=== PATIENT | male | born 1935 ===

== ENCOUNTER 2017-10-06 10:37 | Inpatient (IN) | payer MEDICARE, OTHER ==
[2017-10-06] MEDS ORDERED: Albuterol-Ipratrop 3 mg / 0.5 (3 ml) UD INH STA ×2 (11:46→12:58)
[2017-10-06 12:00] LABS: BASO # 0.1 K/uL (0.0-0.2); BASO % 1.1 % (0.0-2.0); EOS % 0.4 % (0.0-4.0); HEMOGLOBIN 18.4 g/dL (12.0-18.0); MEAN CELL VOLUME 100.1 fL (80.0-94.0); MEAN CORPUSCULAR HGB CONC 34.9 g/dL (33.0-37.0); MEAN PLATELET VOLUME 9.2 fL (7.2-11.7); MONO # 0.5 K/uL (0.0-0.8); MONO % 6.8 % (0.0-10.0); NEUT # 4.2 K/uL (1.8-7.0); NEUT % 61.7 % (50.0-75.0); NRBC % 0.2 % (0.0-2.0); RBC 5.25 Mil/uL (4.40-5.90); RED CELL DISTRIBUTION WIDTH 13.9 % (11.5-14.5); WHITE BLOOD COUNT 6.8 K/uL (4.8-10.8)
--- NOTE | 2017-10-06 12:14 | C.PDOC ---
History Of Present Illness 82 y/o male with history of Asthma brought to ED by EMS for chest pain for 1 week and lightheadedness developed today. As per homemaker patient became lightheaded today while at home and she called EMS. At ED patient denies abdominal pain, nausea, vomiting or any other complaints at this time. Patient + smoker. Time Seen by Provider: 10/06/17 11:33 Chief Complaint (Nursing): Dizziness/Lightheaded History Per: Patient, Family History/Exam Limitations: no limitations Onset/Duration Of Symptoms: Hrs Current Symptoms Are (Timing): Still Present Past Medical History Reviewed: Historical Data, Nursing Documentation, Vital Signs Vital Signs: Last Vital Signs Temp 97.5 F L 10/06/17 10:49 Pulse 65 10/06/17 10:49 Resp 18 10/06/17 10:49 BP 120/53 L 10/06/17 10:49 Pulse Ox 97 10/06/17 13:08 - Medical History PMH: Anxiety, Bronchitis, COPD, HTN Surgical History: Appendectomy - [facility] Procedures NEBULIZER THERAPY (11/26/14) Family History: States: No Known Family Hx - Social History Hx Alcohol Use: Yes Hx Substance Use: No - Immunization History Hx Tetanus Toxoid Vaccination: No Hx Influenza Vaccination: No Hx Pneumococcal Vaccination: No Review Of Systems Except As Marked, All Systems Reviewed And Found Negative. Cardiovascular: Positive for: Chest Pain, Light Headedness Physical Exam - Physical Exam Appears: Non-toxic, No Acute Distress Skin: Warm, Dry, No Rash Head: Atraumatic, Normacephalic Eye(s): bilateral: Normal Inspection Oral Mucosa: Moist Neck: Normal ROM, Supple Cardiovascular: Rhythm Regular Respiratory: Decreased Breath Sounds, No Rales, No Rhonchi, No Wheezing Gastrointestinal/Abdominal: Soft, No Tenderness, No Guarding, No Rebound Extremity: Normal ROM, No Pedal Edema, Capillary Refill (<2 seconds) Neurological/Psych: Oriented x3, Normal Speech, Normal Cognition ED Course And Treatment - Laboratory Results Result Diagrams: 10/06/17 11:49 10/06/17 11:49 ECG: Interpreted By Me, Viewed By Me ECG Rhythm: Sinus Rhythm Rate From EC (BPM) O2 Sat by Pulse Oximetry: 97 (RA) Pulse Ox Interpretation: Normal Medical Decision Making Medical Decision Making: Assessment: Chest pain Plan: EKG, CXR, neb treatment discussed with Dr. Kurtz and will admit to telemetry. Aspirin, breathing treatments, antibiotics given. Disposition Discussed With Dr.: Caleb Kurtz Doctor Will See Patient In The: Hospital Counseled Patient/Family Regarding: Studies Performed, Diagnosis - Disposition Disposition: HOSPITALIZED Disposition Time: 13:07 Condition: FAIR - Clinical Impression Clinical Impression: COPD (chronic obstructive pulmonary disease) with acute bronchitis, Chest pain - Scribe Statement The provider has reviewed the documentation as recorded by the Anna Russell All medical record entries made by the Anna were at my direction and personally dictated by me. I have reviewed the chart and agree that the record accurately reflects my personal performance of the history, physical exam, medical decision making, and the department course for this patient. I have also personally directed, reviewed, and agree with the discharge instructions and disposition.
[2017-10-06 12:16] LABS: ALBUMIN 4.5 g/dL (3.5-5.0); ALT/SGPT 23 U/L (21-72); AST/SGOT 31 U/L (17-59); BLOOD UREA NITROGEN 8 mg/dL (9-20); CALCIUM 9.8 mg/dl (8.6-10.4); GFR AFRICAN-AMERICAN > 60; GFR NON-AFRICAN AMERICAN > 60
[2017-10-06 12:26] LABS: B-TYPE NATRIURETIC PEPTIDE 351 pg/mL (0-900)
--- NOTE | 2017-10-06 12:33 | RAD ---
Chest x-ray single frontal view History: Chest pain. Comparison: None available. Findings: Biapical pleural thickening with upper lobe granulomatous changes. Hyperinflation suggestive for COPD and or emphysematous changes. Mild venous congestion. Bilateral hilar prominence. Patchy bibasilar airspace opacities. Cardiomegaly. Calcification at the aortic knob. Degenerative changes in the spine and shoulders. Impression: Biapical pleural thickening with upper lobe granulomatous changes. Hyperinflation suggestive for COPD and or emphysematous changes. Mild venous congestion. Bilateral hilar prominence. Patchy bibasilar airspace opacities. Cardiomegaly. Calcification at the aortic knob.
[2017-10-06] MEDS ORDERED: Moxifloxacin IV 400mg/250ml NS 400 MG/250 ML BAG IVPB ONE (13:00)
[2017-10-06] MEDS ORDERED: Azithromycin 500 MG in Sodium Chloride 0.9% 250 ML IVPB STA (13:26)
[2017-10-06] MEDS ORDERED: Albuterol-Ipratrop 3 mg / 0.5 (3 ml) UD ONE (13:36)
[2017-10-06 14:33] LABS: URINE BACTERIA RARE (<OCC); URINE BILIRUBIN NEGATIVE (NEGATIVE); URINE BLOOD 3+ (NEGATIVE); URINE CLARITY Clear (Clear); URINE COLOR Straw (YELLOW); URINE GLUCOSE (UA) NORMAL (Normal); URINE LEUKOCYTE ESTERASE NEG Leu/uL (Negative); URINE PROTEIN NEGATIVE (NEGATIVE); URINE UROBILINOGEN NORMAL mg/dL (0.2-1.0)
[2017-10-06] MEDS ORDERED: Pneumococcal 23-Valent Vaccine IM ONE (16:23)
[2017-10-06] MEDS: Albuterol-Ipratrop 3 mg / 0.5 (3 ml) UD INH SCH (21:00)
[2017-10-06] MEDS: MethylPREDNISolone 40 mg Vial IVP SCH (21:38)
[2017-10-07] MEDS: Albuterol-Ipratrop 3 mg / 0.5 (3 ml) UD INH SCH ×4 (01:10→19:58)
[2017-10-07] MEDS: MethylPREDNISolone 40 mg Vial IVP SCH ×3 (06:02→22:02)
[2017-10-07] MEDS: Bisoprolol-HCTZ 5-6.25 mg Tab PO SCH (10:12)
[2017-10-07] MEDS: Pantoprazole 40 mg EC Tab PO SCH (10:12)
[2017-10-07] MEDS: Enoxaparin 40 mg Syringe SC SCH (10:13)
[2017-10-07] MEDS: Azithromycin 500mg/250ML NS 500 MG/250 ML BAG IVPB SCH (11:50)
--- NOTE | 2017-10-07 17:14 | CARD ---
APPROVED REPORT EXAM: Two-dimensional and M-mode echocardiogram with Doppler and color Doppler. Other Information Quality : GoodRhythm : INDICATION LV Function:Systolic Chest Pain 2D DIMENSIONS IVSd1.0 (0.7-1.1cm)LVDd3.7 (3.9-5.9cm) PWd1.0 (0.7-1.1cm)LVDs2.2 (2.5-4.0cm) FS (%) 40.4 %LVEF (%)72.0 (>50%) M-Mode DIMENSIONS Left Atrium (MM)3.92 (2.5-4.0cm)Aortic Root3.52 (2.2-3.7cm) Aortic Cusp Exc.2.30 (1.5-2.0cm) Mitral Valve MV E Yawnlfgh41.1cm/sMV A Vtydiage308.1cm/sE/A ratio0.8 TDI E/Lateral E'0.0E/Medial E'0.0 Tricuspid Valve TR Peak [id number]/sTR Peak Gr.66mmHg LEFT VENTRICLE The left ventricle is normal size. There is normal left ventricular wall thickness. The left ventricular function is normal. The left ventricular ejection fraction is within the normal range. There is normal LV segmental wall motion. Transmitral Doppler flow pattern is Grade I-abnormal relaxation pattern. RIGHT VENTRICLE The right ventricle is borderline dilated. There is normal right ventricular wall thickness. The right ventricular systolic function is normal. ATRIA The left atrium size is normal. The right atrium is borderline dilated. AORTIC VALVE The aortic valve is mildly sclerotic. No aortic regurgitation is present. There is no aortic valvular stenosis. MITRAL VALVE The mitral valve is mildly thickened. There is no mitral valve stenosis. Mitral regurgitation is mild. TRICUSPID VALVE There is moderate tricuspid regurgitation. There is moderate to severe pulmonary hypertension. GREAT VESSELS The aortic root is normal in size. The IVC is normal in size and collapses >50% with inspiration. <Conclusion> The left ventricle is normal size. There is normal left ventricular wall thickness. The left ventricular function is normal. The left ventricular ejection fraction is within the normal range. There is normal LV segmental wall motion. Transmitral Doppler flow pattern is Grade I-abnormal relaxation pattern. Mitral regurgitation is mild. There is moderate tricuspid regurgitation. There is moderate to severe pulmonary hypertension.
--- NOTE | 2017-10-07 18:34 | CT ---
PROCEDURE: CT HEAD WITHOUT CONTRAST. HISTORY: dizziness COMPARISON: None available. TECHNIQUE: Axial computed tomography images were obtained through the head/brain without intravenous contrast. Radiation dose: Total exam DLP = mGy-cm. This CT exam was performed using one or more of the following dose reduction techniques: Automated exposure control, adjustment of the mA and/or kV according to patient size, and/or use of iterative reconstruction technique. FINDINGS: HEMORRHAGE: No intracranial hemorrhage. BRAIN: No mass effect or edema. Mild age-appropriate atrophy. Mild periventricular white matter lucency with patchy foci of deep and subcortical white matter lucency, consistent with chronic microvascular ischemic change. No evidence of acute infarct. VENTRICLES: Unremarkable. No hydrocephalus. CALVARIUM: Unremarkable. PARANASAL SINUSES: Unremarkable as visualized. No significant inflammatory changes. MASTOID AIR CELLS: Unremarkable as visualized. No inflammatory changes. OTHER FINDINGS: None. IMPRESSION: No intracranial mass, hemorrhage or evidence of acute infarct.
[2017-10-07 20:42] LABS: INR 1.1; PROTHROMBIN TIME 12.6 SECONDS (9.7-12.2)
--- NOTE | 2017-10-07 21:59 | CARD ---
APPROVED REPORT EKG Measurement Heart [id number] <Conclusion> Normal sinus rhythm Normal ECG
--- NOTE | 2017-10-08 00:54 | CON ---
DATE: REASON FOR CONSULTATION: Chest pain and lightheadedness.HISTORY OF PRESENT ILLNESS: The patient is an 82-year-old male who has history of bronchial asthma who was admitted because of history of chest pain and recent lightheadedness that developed the day of admission, i.e., yesterday. The patient denies either chest pain or lightheadedness at the time I am evaluating the patient, and he is unaware of any history of heart attack in the past. SOCIAL HISTORY: The patient is a smoker. MEDICATIONS: Cozaar 50 mg once a day, Lipitor inhaler every 6 hours, Lovenox 40 mg subcutaneous once a day, Norvasc 5 mg once a day, Protonix 40 mg once a day, Singulair 10 mg once a day, Solu-Medrol 40 mg intravenously every 8 hours, Xanax 0.5 mg daily, bisoprolol/hydrochlorizide 5/6.25 mg daily, Zithromax 500 mg intravenously daily. REVIEW OF SYSTEMS: The patient complains of cough. He denies any fever or chills. No nausea or vomiting. No syncope. PHYSICAL EXAMINATION: GENERAL: The patient is elderly male, who does not appear to be in any acute distress. VITAL SIGNS: Blood pressure 141/65, heart rate 77, temperature 97.3, respirations 20. HEENT: Normocephalic. CHEST: Bilateral rhonchi. HEART: S1 and S2 regular. ABDOMEN: Soft. EXTREMITIES: No edema. LABORATORY DATA: SMA-7 today, sodium 139, potassium 4.3, chloride 97, CO2 of 27, glucose 154, BUN 8, and creatinine 0.8. Three sets of troponins are negative. Hemoglobin and hematocrit 8.4 and 32.5. White count and platelet count are within normal limits. EKG revealed normal sinus rhythm. Chest x-ray revealed normal cardiac silhouette, consider bilateral lower lobe infiltrate. ASSESSMENT: 1. Chest pain, myocardial infraction ruled out. 2. Considered underlying chronic obstructive lung disease. 3. Considered underlying bilateral pneumonia. 4. Hypertension. RECOMMENDATIONS: Continue Cozaar 50 mg once a day, Lovenox 40 mg subcutaneously once a day, Norvasc 5 mg once a day, Protonix 40 mg p.o. once a day, Singulair 10 mg once a day, Solu-Medrol 40 mg intravenously every 8 hours, bisoprolol/hydrochlorizide 5/6.25 mg once a day, Zithromax 500 mg intravenously daily. I will review the echocardiographic study that was performed today. Obtain both carotid Doppler as well as CT scan without contrast. Tarun Ruiz MD
[2017-10-08] MEDS: Albuterol-Ipratrop 3 mg / 0.5 (3 ml) UD INH SCH ×4 (01:10→19:44)
[2017-10-08] MEDS: MethylPREDNISolone 40 mg Vial IVP SCH ×3 (05:47→21:28)
--- NOTE | 2017-10-08 09:01 | HP ---
HISTORY OF PRESENT ILLNESS: This is an 82-year-old male with history of COPD, smoker, brought to emergency room by EMS for chest pain that has been progressive over 1 week duration. Symptoms were associated with lightheadedness that developed on the day of admission. The patient has a homemaker that called ambulance due to the above symptoms. The patient was evaluated in emergency room and admitted for further management. The patient denied to have any other symptoms in the review of systems. ALLERGIES: THE PATIENT HAS ALLERGY TO PENICILLIN. MEDICATIONS: As per MAR. SOCIAL HISTORY: Positive for smoker. No EtOH or substance abuse. FAMILY HISTORY: Not contributory. PAST MEDICAL HISTORY: COPD, hypertension. PHYSICAL EXAMINATION: VITAL SIGNS: Blood pressure 144/57, temperature 97.3, respiratory rate 20, and pulse 86. HEENT: Pupils equal and reactive to light. Normal-appearing mucosa of the conjunctivae, oropharynx, and nasal membrane mucosa. NECK: Supple. No JVD. No carotid bruit. No lymph node. No thyromegaly. CHEST AND LUNGS: Bilateral symmetrical expansion. Good air exchange. No rales. Few scattered rhonchi. CARDIOVASCULAR SYSTEM: PMI not localized. S1, S2. No additional sounds. ABDOMEN: Normoactive bowel sounds. No tenderness. No organomegaly. No masses. EXTREMITIES: No cyanosis, no clubbing, no edema. CARPENTER REPAIR: Alert, awake, oriented x2. No neurological deficit could be appreciated. ASSESSMENT: 1. Chest pain, rule out myocardial infarction. 2. Hypertension. 3. Chronic obstructive pulmonary disease exacerbation. PLAN: Continue current medications and start the patient on IV antibiotics, azithromycin as well as Solu-Medrol. DVT prophylaxis. Caleb Kurtz MD
[2017-10-08] MEDS: Bisoprolol-HCTZ 5-6.25 mg Tab PO SCH (10:10)
[2017-10-08] MEDS: Enoxaparin 40 mg Syringe SC SCH (10:10)
[2017-10-08] MEDS: Pantoprazole 40 mg EC Tab PO SCH (10:10)
[2017-10-08] MEDS: Azithromycin 500mg/250ML NS 500 MG/250 ML BAG IVPB SCH (12:00)
--- NOTE | 2017-10-08 14:44 | PN ---
DATE: SUBJECTIVE: History was taken via a tech brazer tester who was the RN. The patient is confused and does not answer any question appropriately. However, he to say that he had some hot feeling over the chest. The patient denies any chest pain at this time. PHYSICAL EXAMINATION: VITAL SIGNS: Blood pressure 116/62, heart rate 85, temperature 98, respirations 20. HEENT: Normocephalic. CHEST: Bilateral rhonchi. HEART: S1 and S2, regular. EXTREMITIES: No edema. LABORATORY DATA: Three sets of troponins are negative. Carotid Doppler revealed moderate disease in the right internal carotid artery. This is a preliminary report, the final report is still pending. Head CT scan without contrast revealed no intracranial mass, hemorrhage or evidence of acute infarct. D-dimer was 315, mildly elevated. Echocardiographic study revealed normal ventricular size, wall thickness, and systolic function. There is moderate tricuspid insufficiency and moderate to severe pulmonary hypertension. complaints. ASSESSMENT: 1. Chest pain, myocardial infarction ruled out. 2. Dizziness on admission. 3. Moderate right internal carotid artery disease, official report is still pending. 4. Moderate to severe pulmonary hypertension. RECOMMENDATIONS: Continue current Cozaar 50 mg once daily, Lovenox 40 mg subcutaneous once a day, amlodipine at 5 mg once a day, Solu-Medrol 40 mg intravenously every 8 hours, IV Zithromax 500 mg daily. We will obtain chest CT angio to rule out pulmonary embolism. Tarun Ruiz MD
[2017-10-08] MEDS ORDERED: Iodixanol 320 mg/ml 150 ml Bottle IV ONE (15:32)
--- NOTE | 2017-10-08 17:56 | CT ---
PROCEDURE: CT Chest with contrast (Pulmonary Angiogram) HISTORY: Rule out PE. COMPARISON: None available. TECHNIQUE: Axial computed tomography images were obtained of the chest in the pulmonary arterial phase of enhancement. Coronal and sagittal reformatted images were created and reviewed. Intravenous contrast dose: 100 cc Visipaque 320 contrast Radiation dose: Total exam DLP = 332.84 mGy-cm. This CT exam was performed using one or more of the following dose reduction techniques: Automated exposure control, adjustment of the mA and/or kV according to patient size, and/or use of iterative reconstruction technique. . FINDINGS: PULMONARY ARTERIES: The visualized portions of the pulmonary trunk, right and left main, lobar, segmental and proximal subsegmental branches of the pulmonary arteries are well opacified with no definitive filling defects seen to suggest acute pulmonary embolus. . Pulmonary trunk measures approximately 2.94 cm. AORTA: Ascending thoracic aorta measures approximately. 3.27 cm and descending thoracic aorta measures approximately 2.6 cm. . Note made of soft and partially calcified atherosclerotic plaque along the ascending and descending thoracic aorta. LUNGS: Severe centrilobular and panlobular emphysematous changes throughout the upper and lower lobes. . There is a small area linear area of atelectasis or scarring in the right posterior sulcus. There is also suspected area of scarring in the right the middle lobe region and to a lesser degree lingular regions. There is a elliptical shaped density with linear stellate scarring extending peripherally from this central focus to the pleural surfaces in the left lung apex. This most likely represents scar however followup interval recommended to assess stability and to exclude the possibility of developing scar carcinoma PLEURAL SPACES: Unremarkable. No effusion or pneumothorax. . . The slips of the left hemidiaphragm well delineated. HEART: Heart size is and mildly enlarged. No significant pericardial effusion. LYMPH NODES: No significant mediastinal or hilar adenopathy. Central airways are midline and patent. No large central endoluminal lesions. There is a small hiatal hernia with slight wall thickening of the distal esophagus likely due to protrusion of gastric mucosa. BONES, CHEST WALL: Unremarkable. No fracture or destructive lesion OTHER FINDINGS: Cholecystectomy. . IMPRESSION: No evidence of acute central pulmonary embolus. Mild scarring changes both lower lobes including lingular and middle lobe regions. Severe centrilobular and panlobular emphysematous changes.
--- NOTE | 2017-10-08 22:37 | PN ---
DATE: 10/08/2017. SUBJECTIVE: The patient is seen today 10/08/2017. He has less shortness of breath and wheezing as well as no cardiopulmonary distress. PHYSICAL EXAMINATION: VITAL SIGNS: Blood pressure 117/62, temperature 98, respiratory rate 20 and pulse 85. HEENT: Pupils equal, reactive to light. Normal-appearing mucosa of the conjunctivae, oropharynx and nasal membrane mucosa. NECK: Supple. No JVD. No carotid bruit. No lymph node. No thyromegaly. CHEST AND LUNGS: Bilateral symmetrical expansion. Decreased rhonchi bilaterally. CARDIOVASCULAR SYSTEM: PMI not localized. S1, S2. No additional sounds. ABDOMEN: Normoactive bowel sounds. No tenderness. No organomegaly. No masses. EXTREMITIES: No cyanosis, no clubbing, no edema. BOAT MOTOR MECHANIC: Alert, awake, oriented x1. Positive deafness of both ears. No lateralization signs or neurological deficits. ASSESSMENT: Exacerbation of chronic obstructive pulmonary disease, chest pain and myocardial function was ruled out, hypertension, anxiety. PLAN: Continue current medications including the antibiotics. Follow with Cardiology recommendations. Caleb Kurtz MD
[2017-10-09] MEDS: Albuterol-Ipratrop 3 mg / 0.5 (3 ml) UD INH SCH ×4 (01:31→19:54)
[2017-10-09] MEDS: MethylPREDNISolone 40 mg Vial IVP SCH ×2 (05:29→14:48)
[2017-10-09 08:13] LABS: HEMOGLOBIN 16.7 g/dL (12.0-18.0); MEAN CELL VOLUME 100.3 fL (80.0-94.0); MEAN CORPUSCULAR HEMOGLOBIN 34.5 pg (27.0-31.0); MEAN CORPUSCULAR HGB CONC 34.4 g/dL (33.0-37.0); MEAN PLATELET VOLUME 8.9 fL (7.2-11.7); RBC 4.82 Mil/uL (4.40-5.90); RED CELL DISTRIBUTION WIDTH 14.1 % (11.5-14.5)
[2017-10-09 08:16] LABS: WHITE BLOOD COUNT 10.4 K/uL (4.8-10.8)
[2017-10-09 08:52] LABS: BLOOD UREA NITROGEN 21 mg/dL (9-20); CALCIUM 9.5 mg/dl (8.6-10.4); GFR AFRICAN-AMERICAN > 60; GFR NON-AFRICAN AMERICAN > 60
[2017-10-09] MEDS: Bisoprolol-HCTZ 5-6.25 mg Tab PO SCH (10:38)
[2017-10-09] MEDS: Pantoprazole 40 mg EC Tab PO SCH (10:38)
[2017-10-09] MEDS: Enoxaparin 40 mg Syringe SC SCH (10:38)
--- NOTE | 2017-10-09 19:06 | PN ---
DATE: 10/09/2017 SUBJECTIVE: The patient denies any chest pain, abdominal pain, or shortness of breath. PHYSICAL EXAMINATION VITAL SIGNS: Blood pressure 133/70, heart rate 77, temperature 97.3, respirations 20. HEENT: Normocephalic. CHEST: Clear. HEART: Sounds are regular. EXTREMITIES: No edema. LABORATORY DATA: Today's SMA-7 is within normal limits except for glucose of 131, BUN and creatinine are 21 and 0.7 respectively. Today's hemoglobin, hematocrit, white count, and platelet count are within normal limit. CT angio of chest: No evidence of acute pulmonary embolus. Mild scarring is present in both lower lobes including lingula and middle lobe region. Severe centrilobular and panlobular emphysematous changes. ASSESSMENT AND PLAN: 1. Chest pain, myocardial infarction is ruled out. 2. History of dizziness on admission. 3. Severe centrilobular and panlobular emphysematous changes noted on the CAT scan with mild scarring of both lower lobes and right middle lobe. RECOMMENDATIONS: Continue current Cozaar at 50 mg once a day, Lovenox at 20 mg once a day, amlodipine at 5 mg once a day, Protonix at 40 mg once a day, Solu-Medrol 40 mg intravenously every 8 hours, Zithromax 500 mg once a day. Tarun Ruiz MD
--- NOTE | 2017-10-10 00:48 | PN ---
DATE: 10/09/2017 SUBJECTIVE: The patient is seen today, 10/09/2017. He is less short of breath, and denied to have chest pain today. OBJECTIVE: VITAL SIGNS: Blood pressure is 111/64, temperature 98.2, respiratory rate 20, and pulse 79. HEENT: Pupils equal and reactive to light. Normal-appearing mucosa of the conjunctivae, oropharynx, and nasal membrane mucosa. NECK: Supple. No JVD. No carotid bruit. No lymph nodes. No thyromegaly. CHEST AND LUNGS: Bilateral symmetrical expansion. Good air exchange. No rales. The patient has few scattered rhonchi. CARDIOVASCULAR SYSTEM: PMI not localized. S1, S2. No additional sounds. ABDOMEN: Normoactive bowel sounds. No tenderness. No organomegaly. No masses. EXTREMITIES: No cyanosis, no clubbing, no edema. DIRECTOR OF FIRST IMPRESSIONS: Alert, awake, and oriented x1. The patient has sensorineural deafness, and there is no other neurological deficit. ASSESSMENT: 1. Exacerbation of chronic obstructive pulmonary disease. 2. Hypertension. 3. Chest pain. 4. Myocardial infarction was ruled out. PLAN: We will taper off steroids and continue bronchodilators. Discussed the patient's condition with Cardiology who at this time will not do any further testing as the patient's echocardiogram is unremarkable. Caleb Kurtz MD
[2017-10-10] MEDS: Albuterol-Ipratrop 3 mg / 0.5 (3 ml) UD INH SCH ×4 (01:13→20:37)
[2017-10-10] MEDS: Enoxaparin 40 mg Syringe SC SCH (09:32)
[2017-10-10] MEDS: Pantoprazole 40 mg EC Tab PO SCH (09:33)
[2017-10-10] MEDS: Bisoprolol-HCTZ 5-6.25 mg Tab PO SCH (09:33)
--- NOTE | 2017-10-10 10:09 | VASCLAB ---
PROCEDURE: HISTORY: dizziness COMPARISON: None available. TECHNIQUE: Grayscale and duplex Doppler evaluation of the cervical carotid and vertebral arteries were performed. The common carotid, carotid bifurcations and cervical Internal Carotid Artery (ICA) and proximal External Carotid Artery (ECA) were evaluated. The vertebral arteries were evaluated for gross patency and flow direction. Report prepared by Tigre Olivas, BS, RVT FINDINGS: RIGHT CAROTID ARTERIES: 1. Common Carotid Artery: Moderate plaque formation of the right proximal CCA which results in hemodynamically significant stenosis. Maximum Peak Systolic velocity: 163 cm/sec: End-diastolic velocity 42 cm/sec. 2. Carotid Bifurcation: Calcific plaque formation. Maximum Peak Systolic velocity: 131 cm/sec: End-diastolic velocity 0 cm/sec. 3. Internal Carotid Artery: Severe plaque formation of the right proximal ICA which does not results in a hemodynamically significant stenosis. Plaque description: 3.1. Proximal Segment: Peak systolic velocity 161 cm/sec: End-diastolic velocity 39 cm/sec - % stenosis 50-60% 3.2. Middle Segment: Peak systolic velocity 48 cm/sec: End-diastolic velocity 15 cm/sec - % stenosis 0-15% 3.3. Distal Segment: Peak systolic velocity 61 cm/sec: End-diastolic velocity 19 cm/sec - % stenosis 0-15% 4. External Carotid Artery: No significant focal plaque formation. Peak systolic velocity 224 cm/sec 5. ICA/CCA Ratio: 1.0 LEFT CAROTID ARTERIES: 1. Common Carotid Artery: Moderate plaque formation of the left proximal CCA which does not results in hemodynamically significant stenosis. Maximum Peak Systolic velocity: 128 cm/sec: End-diastolic velocity 14 cm/sec. 2. Carotid Bifurcation: Calcific plaque formation. Maximum Peak Systolic velocity: 184 cm/sec: End-diastolic velocity 0 cm/sec. 3. Internal Carotid Artery: Severe plaque formation of the left proximal ICA which does not results in a hemodynamically significant stenosis. Plaque description: 3.1. Proximal Segment: Peak systolic velocity 85 cm/sec: End-diastolic velocity 14 cm/sec - % stenosis 0-15% 3.2. Middle Segment: Peak systolic velocity 98 cm/sec: End-diastolic velocity 19 cm/sec - % stenosis 0-15% 3.3. Distal Segment: Peak systolic velocity 59 cm/sec: End-diastolic velocity 15 cm/sec - % stenosis 0-15% 4. External Carotid Artery: No significant focal plaque formation. Peak systolic velocity 325 cm/sec 5. ICA/CCA Ratio: 1.4 VERTEBRAL ARTERIES: 1. Right Vertebral Artery: The right vertebral artery flow direction is antegrade. 2. Left Vertebral Artery: The left vertebral artery flow direction is antegrade. OTHER FINDINGS: 1. Right Brachial Blood pressure: mmHg. 2. Left Brachial Blood pressure: mmHg. IMPRESSION: RIGHT: 50-60% stenosis of the right proximal ICA with mild hemodynamic significance. LEFT: Duplex scan does not suggest hemodynamically significant stenosis of the left extracranial carotid arteries.
--- NOTE | 2017-10-10 14:42 | US ---
PROCEDURE: Ultrasound of the Kidneys HISTORY: hematuria COMPARISON: None available. TECHNIQUE: Sonogram of the kidneys. FINDINGS: RIGHT KIDNEY: Measures: 5.7 x 9.4 cm. Normal in size, contour and echogenicity. No stone, solid mass lesion or hydronephrosis visualized. LEFT KIDNEY: Measures: 5.1 x 9.7 cm. Normal in size, contour and echogenicity. No stone, solid mass lesion or hydronephrosis visualized. OTHER FINDINGS: Urinary bladder assessment: 1. Solid mass at the base of the bladder to the right of the midline 1.5 x 1.8 cm. 2. Adjacent posterior bladder wall mass 1.6 x 2.1 cm. Primary neoplasm of the bladder should be considered. Prevoid volume: 345.0 ml Postvoid residual: 214.3 ml Ureteral jets: Not documented. Calculated prostate volume 23.4 mL. P PSA 2.81 IMPRESSION: Contiguous masses of the base of the bladder to the right of midline suspicious for primary bladder carcinoma. Unremarkable upper tracts
[2017-10-10 16:50] LABS: URINE BILIRUBIN NEGATIVE (NEGATIVE); URINE BLOOD 2+ (NEGATIVE); URINE CLARITY Hazy (Clear); URINE COLOR Red (YELLOW); URINE GLUCOSE (UA) NORMAL (Normal); URINE LEUKOCYTE ESTERASE NEG Leu/uL (Negative); URINE PROTEIN 2+ mg/dL (NEGATIVE); URINE UROBILINOGEN NORMAL mg/dL (0.2-1.0)
[2017-10-10 17:59] LABS: ARTERIAL BLOOD GAS HCO3 28.3 mmol/L (21-28); ARTERIAL BLOOD GAS HEMOGLOBIN 17.2 g/dL (11.7-17.4); ARTERIAL BLOOD GAS O2 SAT 91.7 % (95-98); ARTERIAL BLOOD GAS PCO2 50 mm/Hg (35-45); ARTERIAL BLOOD GAS PO2 60 mm/Hg (80-100); ARTERIAL BLOOD GAS TCO2 32.5 mmol/L (22-28)
[2017-10-10] MEDS: MethylPREDNISolone 40 mg Vial IV SCH (18:46)
[2017-10-10] MEDS: Fluticasone-Salmeterol 250-50mcg Diskus INH SCH (20:37)
[2017-10-10] MEDS: Tiotropium 18 mcg Cap For Inhalation INH SCH (20:38)
--- NOTE | 2017-10-10 20:40 | PN ---
DATE: SUBJECTIVE: The patient is oriented to place. He denies any chest pain and was reported to have a reddish urine that was sent for urinalysis. PHYSICAL EXAMINATION: VITAL SIGNS: Blood pressure 156/74, heart rate 76, temperature 97.7, respirations 18. HEENT: Normocephalic. CHEST: Clear. HEART: S1, S2 regular. EXTREMITIES: No edema. LABORATORY DATA: SMA-7 is within normal limits except for glucose of 131, BUN and creatinine are 21 and 0.7 respectively. Bladder ultrasound revealed of the base of the bladder to the right of the midline, suspicious for primary bladder carcinoma. ASSESSMENT AND PLAN: 1. on presentation. 2. Chest pain, myocardial infarction is ruled out. 3. Rule out bladder carcinoma. 4. Moderate right internal coronary artery stenosis with mild hemodynamic significance. RECOMMENDATIONS: Continue Cozaar, discontinue subcutaneous Lovenox. Continue Singulair, Norvasc, and Xanax. Consider urology evaluation. Tarun Ruiz MD
--- NOTE | 2017-10-11 00:56 | PN ---
DATE: 10/10/2017 SUBJECTIVE: The patient is seen today, 10/10/2017. The patient has shortness of breath and oxygen dropped when patient take oxygen off. OBJECTIVE: VITAL SIGNS: Blood pressure 168/70, temperature 97.8, respiratory rate 22, and pulse 74. HEENT: Pupils equal and reactive to light. Normal-appearing mucosa of the conjunctivae, oropharynx, and nasal membrane mucosa. NECK: Supple. No JVD. No carotid bruit. No lymph node. No thyromegaly. CHEST AND LUNGS: Bilateral symmetrical expansion with positive scattered rhonchi all over lung baker. CARDIOVASCULAR SYSTEM: PMI not localized. S1, S2. No additional sounds. ABDOMEN: Normoactive bowel sounds. No tenderness. No organomegaly. No masses. EXTREMITIES: No cyanosis, no clubbing, no edema. 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 LABORATORY DATA: ABG done today showed pCO2 of 50, pO2 of 16, and pH 7.4. ASSESSMENT: Exacerbation of chronic obstructive pulmonary disease, hypertension, and pneumonia. PLAN: Continue IV antibiotics and pulmonary consult. Oxygen supplement. Also urology consult for hematuria with possible urinary bladder tumor. Caleb Kurtz MD
[2017-10-11] MEDS: Albuterol-Ipratrop 3 mg / 0.5 (3 ml) UD INH SCH ×7 (01:18→23:47)
[2017-10-11] MEDS: MethylPREDNISolone 40 mg Vial IV SCH ×2 (06:30→19:18)
[2017-10-11] MEDS: Fluticasone-Salmeterol 250-50mcg Diskus INH SCH ×2 (07:32→19:42)
[2017-10-11] MEDS: Tiotropium 18 mcg Cap For Inhalation INH SCH (07:33)
[2017-10-11] MEDS: Bisoprolol-HCTZ 5-6.25 mg Tab PO SCH (09:32)
--- NOTE | 2017-10-11 15:09 | CP.PCM.CON ---
History of Present Illness - History of Present Illness History of Present Illness: Reason for consult: Shortness of breath HPI: 82M with PMHx of COPD, HTN brought in by EMS on 10/06 for 1 day of lightheadedness and 1 week of progressively worsening chest pain. The patient reported hematuria 2 days ago and a bladder US had findings suspicious for a primary bladder tumor. On 10/10, the patient reported shortness of breath and desaturated to 85% when off supplemental oxygen. He responded well to supplemental oxygen achieving a saturation of 97% on 3L [place]. He still reports feeling short of breath. PMHx: COPD, HTN PSH: appendectomy Allergies: Penicillin SH: Smoker, drinks alcohol, has a homemaker Assessment and Plan: 1. COPD - ABG 10/10: 7.40/ 50/60/28.3 - CTA 10/08: Severe centrilobular and panlobular emphysematous changes throughout the upper and lower lobes. - solumedrol 40mg IV Q12h - nebulizer treatments - spiriva - advair - azithromycin - BiPAP 2. Pulmonary hypertension - Echo 10/06: normal LV size, thickness, function and EF. Moderate to severe pulmonary hypertension Past Patient History - Infectious Disease Hx of Infectious Diseases: None - Past Medical History & Family History Past Medical History?: Yes - Past Social History Smoking Status: Former Smoker - CARDIAC Hx Hypertension: Yes - PULMONARY Hx Chronic Obstructive Pulmonary Disease (COPD): Yes - NEUROLOGICAL Hx Dizziness: Yes - HEENT Other/Comment: "ear problems that affect balance" - RENAL Hx Chronic Kidney Disease: No - ENDOCRINE/METABOLIC Hx Endocrine Disorders: No - HEMATOLOGICAL/ONCOLOGICAL Hx Blood Transfusions: No - INTEGUMENTARY Hx Dermatological Problems: No - MUSCULOSKELETAL/RHEUMATOLOGICAL Hx Falls: No - GASTROINTESTINAL Hx Gastrointestinal Disorders: No - GENITOURINARY/GYNECOLOGICAL Hx Genitourinary Disorders: No - PSYCHIATRIC Hx Anxiety: Yes Hx Substance Use: No - SURGICAL HISTORY Hx Appendectomy: Yes - ANESTHESIA Hx Anesthesia: Yes Hx Anesthesia Reactions: No Hx Malignant Hyperthermia: No Has any member of the family had a problem w/ anesthesia?: No Meds Allergies/Adverse Reactions: Allergies Allergy/AdvReac Type Severity Reaction Status Date / Time Penicillins Allergy Verified 10/06/17 10:53 - Medications Medications: Current Medications Albuterol/Ipratropium (Duoneb 3 Mg/0.5 Mg (3 Ml) Ud) 3 ml INH RQ4 [facility] Last Admin: 10/11/17 11:25 Dose: 3 ml Amlodipine Besylate (Norvasc) 5 mg PO DAILY [facility] Last Admin: 10/11/17 09:32 Dose: 5 mg Azithromycin (Zithromax) 500 mg PO Q24H [facility] Last Admin: 10/11/17 11:22 Dose: 500 mg Bisoprolol Fumarate/HCTZ (Ziac 5-6.25 Mg) 1 tab PO DAILY [facility] Last Admin: 10/11/17 09:32 Dose: 1 tab Enoxaparin Sodium (Lovenox) 40 mg SC DAILY [facility] Last Admin: 10/10/17 09:32 Dose: 40 mg Losartan Potassium (Cozaar) 50 mg PO DAILY [facility] Last Admin: 10/11/17 09:32 Dose: 50 mg Methylprednisolone (Solu-Medrol) 40 mg IV Q12H [facility] Last Admin: 10/10/17 18:46 Dose: 40 mg Fluticasone/Salmeterol (Advair Diskus 250/50) 1 puff INH RQ12 [facility] Last Admin: 10/11/17 07:32 Dose: 1 puff Tiotropium [place] (Spiriva) 18 mcg INH RQ24 [facility] Last Admin: 10/11/17 07:33 Dose: 18 mcg Results - Vital Signs Recent Vital Signs: Last Vital Signs Temp 97.5 F L 10/11/17 08:17 Pulse 74 10/11/17 12:48 Resp 20 10/11/17 08:17 BP 126/62 10/11/17 09:33 Pulse Ox 97 10/11/17 09:33 - Labs Result Diagrams: 10/09/17 08:04 10/09/17 08:04 Labs: Laboratory Results - last 24 hr 10/10/17 10/10/17 10/10/17 16:37 16:39 17:55 D-Dimer, Quantitative Puncture Site Rra pCO2 50 H pO2 60 L HCO3 28.3 H ABG pH 7.40 ABG Total CO2 32.5 H ABG O2 Saturation 91.7 L ABG Base Excess 4.7 H ABG Hemoglobin 17.2 ABG Carboxyhemoglobin 1.7 H POC ABG HHb (Measured) 8.1 H ABG Methemoglobin 1.0 Naseem Test Na A-a O2 Difference 27.0 Respiratory Index 0.5 Hgb O2 Saturation 89.3 L FiO2 21.0 Prostate Specific Ag 3.39 Urine Color Red Urine Clarity Hazy Urine pH 6.0 Ur Specific [place] 1.019 Urine Protein 2+ H Urine Glucose (UA) Normal Urine Ketones Negative Urine Blood 2+ H Urine Nitrate Negative Urine Bilirubin Negative Urine Urobilinogen Normal Ur Leukocyte Esterase Neg Urine WBC (Auto) 3 Urine RBC (Auto) 3535 H 10/11/17 13:14 D-Dimer, Quantitative 307 H Puncture Site pCO2 pO2 HCO3 ABG pH ABG Total CO2 ABG O2 Saturation ABG Base Excess ABG Hemoglobin ABG Carboxyhemoglobin POC ABG HHb (Measured) ABG Methemoglobin Naseem Test A-a O2 Difference Respiratory Index Hgb O2 Saturation FiO2 Prostate Specific Ag Urine Color Urine Clarity Urine pH Ur Specific [place] Urine Protein Urine Glucose (UA) Urine Ketones Urine Blood Urine Nitrate Urine Bilirubin Urine Urobilinogen Ur Leukocyte Esterase Urine WBC (Auto) Urine RBC (Auto)
--- NOTE | 2017-10-11 18:19 | PN ---
DATE: SUBJECTIVE: The patient today followed for his surgical stay and had expiratory wheezing. The patient was placed back on Solu-Medrol at 40 mg a.c. twice a day. He is comfortable today. He denies any chest pain. PHYSICAL EXAMINATION VITAL SIGNS: Blood pressure 126/62, heart rate 72, temperature 97.5, respirations 20. HEENT: Normocephalic. CHEST: No rales or rhonchi. HEART: S1, S2 regular. EXTREMITIES: No edema. ASSESSMENT: 1. Severe chronic obstructive lung disease. 2. Atypical chest pain, myocardial infarction is ruled out. 3. Hematuria and bladder mass, suspicious of primary bladder carcinoma. 4. Hypertension. RECOMMENDATIONS: Continue Cozaar at 50 mg once a day, Lovenox at 40 mg once a day, Norvasc at 5 mg once a day, Solu-Medrol 40 mg intravenously twice a day, Zithromax 100 mg orally once a day, bisoprolol and hydrochlorothiazide 5/6.25 mg daily. Case was discussed with the AUTOMATED WEAVER and with the primary physician. The patient can undergo cystoscopy from the cardiac point of view with telemetry monitoring post procedure. Tarun Ruiz MD
--- NOTE | 2017-10-12 02:04 | PN ---
DATE: 10/11/2017 DAILY PROGRESS NOTE SUBJECTIVE: Patient is seen today, 10/11/2017. He is not in any cardiopulmonary distress. He is on BiPAP. OBJECTIVE: VITAL SIGNS: Blood pressure is 149/76, temperature 98.2, respiratory rate 20, and pulse 85. HEENT: Pupils equal, reactive to light. Normal-appearing mucosa of the conjunctivae, oropharynx and nasal membrane mucosa. NECK: Supple. No JVD. No carotid bruit. No lymph node. No thyromegaly. CHEST AND LUNGS: Bilateral symmetrical expansion. Good air exchange. No rales, no rhonchi. CARDIOVASCULAR SYSTEM: PMI not localized. S1, S2. No additional sounds. ABDOMEN: Normoactive bowel sounds. No tenderness. No organomegaly. No masses. EXTREMITIES: No cyanosis, no clubbing, no edema. DIRECTOR OF FOOD AND BEVERAGE SERVICES: Alert, awake, oriented x2. 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 ASSESSMENT: 1. Hematuria with bladder ultrasound showing contiguous masses of the base of the bladder to the right of the midline suspicious for primary bladder carcinoma. 2. Chronic obstructive pulmonary disease exacerbation. 3. Hypertension. PLAN: Follow recommendations of the consultants and the patient is for cystoscopy as suggested by urologist. Caleb Kurtz MD
[2017-10-12] MEDS: Albuterol-Ipratrop 3 mg / 0.5 (3 ml) UD INH SCH ×6 (03:09→23:47)
--- NOTE | 2017-10-12 03:54 | CON ---
DATE: HISTORY OF PRESENT ILLNESS: The patient is an 82-year-old [place] gentleman who was admitted because of pneumonia and coughing. He has gross hematuria. I called in consult. The patient apparently is bleeding on and off since age 65, was smoker long time ago. Bladder ultrasound which was done revealed multiple bladder tumor. The patient is still bleeding, has no history of surgery, not smoking recently in the last 10 years. No dysuria. It is just frequency and gross hematuria. PHYSICAL EXAMINATION: Revealed abdomen soft, no flank tenderness. No kidney palpable. No suprapubic fullness. External genitalia normal. Rectal was difficult to evaluate. The ultrasounds revealed close to 2 cm tumor on the posterior and one on the lateral. IMPRESSION: Bladder tumor, hematuria. PLAN: Cystoscopy and transurethral resection of bladder tumor. Zeb Dong MD
[2017-10-12] MEDS: MethylPREDNISolone 40 mg Vial IV SCH ×2 (06:11→17:52)
[2017-10-12 07:26] LABS: BLOOD UREA NITROGEN 34 mg/dL (9-20); CALCIUM 9.1 mg/dl (8.6-10.4); GFR AFRICAN-AMERICAN > 60; GFR NON-AFRICAN AMERICAN > 60
[2017-10-12 07:36] LABS: BASO % 0.3 % (0.0-2.0); HEMOGLOBIN 17.3 g/dL (12.0-18.0); INR 1.1; LYMPH # 0.9 K/uL (1.0-4.3); LYMPH % 7.6 % (20.0-40.0); MEAN CELL VOLUME 99.7 fL (80.0-94.0); MEAN CORPUSCULAR HEMOGLOBIN 34.7 pg (27.0-31.0); MEAN CORPUSCULAR HGB CONC 34.8 g/dL (33.0-37.0); MEAN PLATELET VOLUME 9.1 fL (7.2-11.7); MONO # 0.6 K/uL (0.0-0.8); MONO % 5.1 % (0.0-10.0); NEUT # 9.9 K/uL (1.8-7.0); NRBC % 0.2 % (0.0-2.0); PLATELET COUNT 174 K/uL (130-400); RBC 4.99 Mil/uL (4.40-5.90); RED CELL DISTRIBUTION WIDTH 13.7 % (11.5-14.5); WHITE BLOOD COUNT 11.4 K/uL (4.8-10.8)
[2017-10-12 08:33] LABS: LYMPHOCYTE 5 % (20-40); MONOCYTE 4 % (0-10); NEUTROPHIL 91 % (50-75); PLATELET ESTIMATE NORMAL (NORMAL); TOTAL CELLS COUNTED 100
[2017-10-12] MEDS: Fluticasone-Salmeterol 250-50mcg Diskus INH SCH ×2 (09:26→19:41)
[2017-10-12] MEDS: Tiotropium 18 mcg Cap For Inhalation INH SCH (09:26)
[2017-10-12] MEDS: Bisoprolol-HCTZ 5-6.25 mg Tab PO SCH (09:28)
--- NOTE | 2017-10-12 12:20 | VASCLAB ---
PROCEDURE: Lower Extremity Venous Duplex Exam. HISTORY: DVT PRIORS: None. TECHNIQUE: Bilateral common femoral, femoral, popliteal and posterior tibial, peroneal and great saphenous veins were evaluated. Flow was assessed with color Doppler, compressibility, assessment of phasic flow and augmentation response. Report prepared by DANIELA Crawford, RVT FINDINGS: RIGHT: 1. Common Femoral Vein: 1.1. Compressibility - Fully compressible: Thrombus - None : Flow - Phasic: Augmentation -Normal: Reflux - None. 2. Femoral Vein: 2.1. Compressibility - Fully compressible: Thrombus - None : Flow - Phasic: Augmentation -Normal: Reflux - None. 3. Popliteal Vein: 3.1. Compressibility - Fully compressible: Thrombus - None : Flow - Phasic: Augmentation -Normal: Reflux - None. 4. Posterior Tibial Vein: 4.1. Compressibility - Fully compressible: Thrombus - None: Flow - Phasic: Augmentation -Normal: Reflux - None. 5. Peroneal Vein: 5.1. Compressibility - Fully compressible: Thrombus - None: Flow - Phasic: Augmentation -Normal: Reflux - None. 6. Great Saphenous Vein: 6.1. Compressibility - : Thrombus - : Flow - : Augmentation - : Reflux - . LEFT: 1. Common Femoral Vein: 1.1. Compressibility - Fully compressible: Thrombus - None: Flow - Phasic: Augmentation -Normal: Reflux - None. 2. Femoral Vein: 2.1. Compressibility - Fully compressible: Thrombus - None: Flow - Phasic: Augmentation -Normal: Reflux - None. 3. Popliteal Vein: 3.1. Compressibility - Fully compressible: Thrombus - None : Flow - Phasic: Augmentation -Normal: Reflux - None. 4. Posterior Tibial Vein: 4.1. Compressibility - Fully compressible: Thrombus - None: Flow - Phasic: Augmentation -Normal: Reflux - None. 5. Peroneal Vein: 5.1. Compressibility - Fully compressible: Thrombus - None: Flow - Phasic: Augmentation -Normal: Reflux - None. 6. Great Saphenous Vein: 6.1. Compressibility - : Thrombus - : Flow - : Augmentation - : Reflux - . OTHER FINDINGS: Right: None significant. Left: None significant. IMPRESSION: Right: No evidence of deep or superficial vein thrombosis of the right lower extremity. Normal valve function noted of the right side. Left: No evidence of deep or superficial vein thrombosis of the left lower extremity. Normal valve function noted of the left side.
[2017-10-12] MEDS ORDERED: Propofol 10 mg/ml Inj (20 ML) ONE (13:51)
[2017-10-12] MEDS ORDERED: Midazolam 2 MG/2 ML VIAL ONE (13:51)
[2017-10-12] MEDS ORDERED: Lidocaine 2% Jelly (Uro-Jet) ONE (13:57)
[2017-10-12] MEDS ORDERED: Ciprofloxacin 400mg/200ml D5W 400 MG/200 ML BAG IVPB ONE (14:04)
--- NOTE | 2017-10-12 16:38 | CP.PCM.PN ---
Subjective - Date & Time of Evaluation Date of Evaluation: 10/12/17 Time of Evaluation: 10:00 - Subjective Subjective: Patient seen and examined at bedside. No acute events overnight per nursing. Shortness of breath present but improved. No complaints today. Hematuria still present, Dr. Dong planning transurethral resection of bladder tumors. Assessment and Plan: 1. COPD - CTA 10/08: Severe centrilobular and panlobular emphysematous changes throughout the upper and lower lobes. - CBC 10/12: WBC 11.4, 87% neutros - solumedrol 40mg IV Q12h - nebulizer treatments - spiriva - advair - azithromycin 2. Group 3 Pulmonary hypertension 2/ to hypoxemia of COPD - Echo 10/06: Moderate to severe pulmonary hypertension, normal LV size, thickness, function and EF. - ABG 10/10: 7.40/50/60/28.3 - BiPAP Objective - Vital Signs/Intake and Output Vital Signs (last 24 hours): Temp Pulse Resp BP Pulse Ox 97.7 F 65 18 126/74 95 10/12/17 16:05 10/12/17 16:07 10/12/17 16:05 10/12/17 16:05 10/12/17 16:05 Intake and Output: 10/12/17 10/12/17 06:59 18:59 Intake Total 710 Output Total 200 500 Balance -200 210 - Medications Medications: Current Medications Albuterol/Ipratropium (Duoneb 3 Mg/0.5 Mg (3 Ml) Ud) 3 ml INH RQ4 [facility] Last Admin: 10/12/17 16:22 Dose: 3 ml Amlodipine Besylate (Norvasc) 5 mg PO DAILY [facility] Last Admin: 10/12/17 09:29 Dose: 5 mg Azithromycin (Zithromax) 500 mg PO Q24H [facility] Last Admin: 10/12/17 11:00 Dose: 500 mg Bisoprolol Fumarate/HCTZ (Ziac 5-6.25 Mg) 1 tab PO DAILY [facility] Last Admin: 10/12/17 09:28 Dose: 1 tab Enoxaparin Sodium (Lovenox) 40 mg SC DAILY [facility] Last Admin: 10/10/17 09:32 Dose: 40 mg Losartan Potassium (Cozaar) 50 mg PO DAILY [facility] Last Admin: 05/02/18 09:28 Dose: 50 mg Methylprednisolone (Solu-Medrol) 40 mg IV Q12H [facility] Last Admin: 10/12/17 06:11 Dose: 40 mg Fluticasone/Salmeterol (Advair Diskus 250/50) 1 puff INH RQ12 [facility] Last Admin: 10/12/17 09:26 Dose: 1 puff Tiotropium [place] (Spiriva) 18 mcg INH RQ24 [facility] Last Admin: 10/12/17 09:26 Dose: 18 mcg - Labs Labs: 10/12/17 06:56 10/12/17 06:56 PT 12.0 SECONDS (9.7-12.2) 10/12/17 06:56 INR 1.1 10/12/17 06:56 APTT 25 SECONDS (21-34) 10/12/17 06:56
--- NOTE | 2017-10-12 23:06 | PN ---
DATE: SUBJECTIVE: The patient underwent cystoscopy with transurethral resection. He denies any chest pain or shortness of breath. PHYSICAL EXAMINATION: VITAL SIGNS: Blood pressure 126/74, heart rate 64, temperature 97.7, respirations 18. HEENT: Normocephalic. CHEST: Minimal rhonchi. HEART: S1 and S2 regular. EXTREMITIES: Show no edema. LABORATORY DATA: SMA-7, sodium 138, potassium 4.7, chloride 95, CO2 of 35, glucose 150, BUN 34, creatinine 0.9. Previous hemoglobin and hematocrit 17.3 and 49.7. White count 11.4, platelet count 174,000. ASSESSMENT: 1. Chest pain, myocardial infarction is ruled out. 2. Chronic obstructive lung disease. 3. Status post cystoscopy with transurethral resection, rule out bladder cancer. RECOMMENDATIONS: Continue Cozaar 50 mg once a day, Lovenox 20 mg subcutaneous once a day, Norvasc 5 mg once a day, Solu-Medrol 40 mg intravenously twice a day, Ziac 5/6.25 mg daily, Zithromax 500 mg daily. Obtain post procedure 12-lead EKG and telemetry monitoring. Tarun Ruiz MD
--- NOTE | 2017-10-13 02:10 | PN ---
DATE: 10/12/2017 SUBJECTIVE: The patient is seen today 10/12/2017. He is not in any cardiopulmonary distress. PHYSICAL EXAMINATION: VITAL SIGNS: Blood pressure 126/74, temperature 97.7, respiratory rate 18 and pulse 64. HEENT: Pupils equal, reactive to light. Normal-appearing mucosa of the conjunctivae, oropharynx and nasal membrane mucosa. NECK: Supple. No JVD. No carotid bruit. No lymph nodes. No thyromegaly. CHEST AND LUNGS: Bilateral symmetrical expansion. Good air exchange. No rales, no rhonchi. CARDIOVASCULAR SYSTEM: PMI not localized. S1, S2. No additional sounds. ABDOMEN: Normoactive bowel sounds. No tenderness. No organomegaly. No masses. EXTREMITIES: No cyanosis, no clubbing, no edema. 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 No neurological deficit could be appreciated. ASSESSMENT: 1. Exacerbation of chronic obstructive pulmonary disease. 2. Pneumonia. 3. Hematuria with bladder tumor. PLAN The patient was for cystoscopy and transurethral bladder tumor resection. Continue current medications and follow recommendations of consultants. Caleb Kurtz MD
[2017-10-13] MEDS: Albuterol-Ipratrop 3 mg / 0.5 (3 ml) UD INH SCH ×5 (03:22→19:49)
[2017-10-13] MEDS: MethylPREDNISolone 40 mg Vial IV SCH ×2 (05:37→17:48)
[2017-10-13] MEDS: Fluticasone-Salmeterol 250-50mcg Diskus INH SCH ×2 (08:03→19:49)
[2017-10-13] MEDS: Tiotropium 18 mcg Cap For Inhalation INH SCH (08:03)
[2017-10-13 08:14] LABS: BASO % 0.2 % (0.0-2.0); LYMPH # 0.7 K/uL (1.0-4.3); LYMPH % 5.3 % (20.0-40.0); MEAN CELL VOLUME 99.7 fL (80.0-94.0); MEAN CORPUSCULAR HEMOGLOBIN 34.7 pg (27.0-31.0); MEAN CORPUSCULAR HGB CONC 34.8 g/dL (33.0-37.0); MEAN PLATELET VOLUME 9.1 fL (7.2-11.7); MONO % 7.6 % (0.0-10.0); NEUT # 11.2 K/uL (1.8-7.0); NEUT % 86.9 % (50.0-75.0); NRBC % 0.1 % (0.0-2.0); PLATELET COUNT 181 K/uL (130-400); RED CELL DISTRIBUTION WIDTH 13.9 % (11.5-14.5); WHITE BLOOD COUNT 12.9 K/uL (4.8-10.8)
[2017-10-13 08:28] LABS: CALCIUM 8.9 mg/dl (8.6-10.4)
[2017-10-13 09:34] LABS: LYMPHOCYTE 8 % (20-40); MONOCYTE 7 % (0-10); NEUTROPHIL 85 % (50-75); TOTAL CELLS COUNTED 100
[2017-10-13 09:35] LABS: PLATELET ESTIMATE NORMAL (NORMAL)
[2017-10-13] MEDS: Bisoprolol-HCTZ 5-6.25 mg Tab PO SCH (10:20)
[2017-10-13] MEDS ORDERED: Sodium Chloride 0.9% 250 ML IV ONE (10:30)
--- NOTE | 2017-10-13 11:51 | CARD ---
APPROVED REPORT EKG Measurement Heart [id number] <Conclusion> Sinus rhythm
--- NOTE | 2017-10-13 13:29 | CP.PCM.PN ---
Subjective - Date & Time of Evaluation Date of Evaluation: 10/13/17 Time of Evaluation: 09:00 - Subjective Subjective: patient seen and examined. Shortness of breath on minimal exertion Using BiPAP Afebrile No chest pain Objective - Vital Signs/Intake and Output Vital Signs (last 24 hours): Temp Pulse Resp BP Pulse Ox 97.8 F 76 18 154/73 H 98 10/13/17 07:20 10/13/17 13:20 10/13/17 07:20 10/13/17 07:20 10/13/17 07:20 Intake and Output: 10/13/17 10/13/17 06:59 18:59 Output Total 250 Balance -250 - Medications Medications: Current Medications Albuterol/Ipratropium (Duoneb 3 Mg/0.5 Mg (3 Ml) Ud) 3 ml INH RQ4 [facility] Last Admin: 10/13/17 11:08 Dose: 3 ml Alprazolam (Xanax) 0.5 mg PO BID PRN PRN Reason: Anxiety Amlodipine Besylate (Norvasc) 5 mg PO DAILY [facility] Last Admin: 10/13/17 10:20 Dose: 5 mg Azithromycin (Zithromax) 500 mg PO Q24H [facility] Last Admin: 10/12/17 11:00 Dose: 500 mg Bisoprolol Fumarate/HCTZ (Ziac 5-6.25 Mg) 1 tab PO DAILY [facility] Last Admin: 10/13/17 10:20 Dose: 1 tab Losartan Potassium (Cozaar) 50 mg PO DAILY [facility] Last Admin: 10/13/17 10:19 Dose: 50 mg Methylprednisolone (Solu-Medrol) 40 mg IV Q12H [facility] Last Admin: 10/13/17 05:37 Dose: 40 mg Fluticasone/Salmeterol (Advair Diskus 250/50) 1 puff INH RQ12 [facility] Last Admin: 10/13/17 08:03 Dose: 1 puff Tamsulosin HCl (Flomax) 0.4 mg PO DAILY [facility] Last Admin: 10/13/17 11:55 Dose: 0.4 mg Tiotropium [place] (Spiriva) 18 mcg INH RQ24 [facility] Last Admin: 10/13/17 08:03 Dose: 18 mcg - Labs Labs: 10/13/17 07:53 10/13/17 07:53 PT 12.0 SECONDS (9.7-12.2) 10/12/17 06:56 INR 1.1 10/12/17 06:56 APTT 25 SECONDS (21-34) 10/12/17 06:56 - Head Exam Head Exam: ATRAUMATIC, NORMOCEPHALIC - Eye Exam Eye Exam: Normal appearance - ENT Exam ENT Exam: Mucous Membranes Moist - Neck Exam Neck Exam: Normal Inspection - Respiratory Exam Respiratory Exam: Decreased Breath Sounds - Cardiovascular Exam Cardiovascular Exam: REGULAR RHYTHM - GI/Abdominal Exam GI & Abdominal Exam: Soft, Normal Bowel Sounds - Neurological Exam Neurological Exam: Alert, Oriented x3 Assessment and Plan (1) COPD (chronic obstructive pulmonary disease) with acute bronchitis Assessment & Plan: Continue nebulizer treatment Switch to prednisone at 40 mg once daily for 5 days and taper LABA AND LAMA TREATMENT ABG room air continue BiPAP as needed For subacute Status: Acute
[2017-10-13 16:39] LABS: ABG ALLEN TEST POS; ARTERIAL BLOOD GAS HCO3 26.3 mmol/L (21-28); ARTERIAL BLOOD GAS HEMOGLOBIN 15.7 g/dL (11.7-17.4); ARTERIAL BLOOD GAS O2 SAT 86.1 % (95-98); ARTERIAL BLOOD GAS PCO2 39 mm/Hg (35-45); ARTERIAL BLOOD GAS PH 7.44 (7.35-7.45); ARTERIAL BLOOD GAS PO2 47 mm/Hg (80-100); ARTERIAL BLOOD GAS TCO2 27.7 mmol/L (22-28)
--- NOTE | 2017-10-13 16:41 | RAD ---
HISTORY: abd pains/p cysto COMPARISON: No prior. FINDINGS: BOWEL: Normal. No obstruction. No free air. BONES: Normal. OTHER FINDINGS: Possible right basilar pulmonary infiltrate. Evaluation with chest radiography is advised. IMPRESSION: Normal bowel gas pattern. Possible right basilar pulmonary infiltrate. Evaluation with chest radiography is advised.
--- NOTE | 2017-10-13 19:49 | PN ---
DATE: 10/13/2017 SUBJECTIVE: The patient denies chest pain. He did require a Snow catheter placement because he was in pain and had residual 400 mL of urine. No reports of ventricular arrhythmia. PHYSICAL EXAMINATION: VITAL SIGNS: Blood pressure 154/73, heart rate 71, temperature 97.8, respirations 18. HEENT: Normocephalic. CHEST: Bilateral rhonchi. HEART: Heart sounds S1 and S2 are regular. EXTREMITIES: No edema. LABORATORY DATA: EKG done yesterday reveals normal sinus rhythm. SMA-7: Sodium 134, potassium 4.6, chloride 93, CO2 is 30, glucose 134, BUN 51, creatinine 1.5. Hemoglobin and hematocrit 17 and 48.8. White count 12.9, platelet count 181,000. Venous Doppler of lower extremities: No evidence of DVT. ASSESSMENT: 1. History of chest pain on admission, myocardial infarction is ruled out. 2. Chronic obstructive lung disease. 3. Status post transurethral bladder biopsy for bladder mass. 4. Prerenal azotemia. 5. Hypertension. RECOMMENDATIONS: Continue Cozaar 50 mg once a day, Norvasc 500 mg once a day, Solu-Medrol 40 mg intravenously every 12 hours, Zithromax 500 mg orally once a day, Ziac at 5/6.25 mg once a day. Oral fluid intake was encouraged. Tarun Ruiz MD
[2017-10-13] MEDS ORDERED: Tramadol 25 mg PO ONE (21:45)
[2017-10-14] MEDS: Albuterol-Ipratrop 3 mg / 0.5 (3 ml) UD INH SCH ×5 (00:25→19:42)
[2017-10-14] MEDS: MethylPREDNISolone 40 mg Vial IV SCH ×2 (05:42→18:28)
[2017-10-14 06:36] LABS: BASO % 0.1 % (0.0-2.0); HEMOGLOBIN 16.4 g/dL (12.0-18.0); LYMPH # 0.5 K/uL (1.0-4.3); LYMPH % 3.5 % (20.0-40.0); MEAN CORPUSCULAR HEMOGLOBIN 34.6 pg (27.0-31.0); MEAN PLATELET VOLUME 8.5 fL (7.2-11.7); MONO # 1.2 K/uL (0.0-0.8); MONO % 8.4 % (0.0-10.0); NEUT # 12.6 K/uL (1.8-7.0); PLATELET COUNT 160 K/uL (130-400); RBC 4.74 Mil/uL (4.40-5.90); RED CELL DISTRIBUTION WIDTH 13.7 % (11.5-14.5); WHITE BLOOD COUNT 14.4 K/uL (4.8-10.8)
[2017-10-14 06:50] LABS: CALCIUM 8.7 mg/dl (8.6-10.4)
[2017-10-14] MEDS: Tiotropium 18 mcg Cap For Inhalation INH SCH (07:32)
[2017-10-14] MEDS: Fluticasone-Salmeterol 250-50mcg Diskus INH SCH ×2 (07:32→19:42)
[2017-10-14 08:37] LABS: LYMPHOCYTE 4 % (20-40); TOTAL CELLS COUNTED 100
[2017-10-14 08:38] LABS: MONOCYTE 7 % (0-10); NEUTROPHIL 89 % (50-75); PLATELET ESTIMATE NORMAL (NORMAL)
[2017-10-14] MEDS: Bisoprolol-HCTZ 5-6.25 mg Tab PO SCH (09:37)
--- NOTE | 2017-10-14 09:45 | PN ---
DATE: 10/13/2017 SUBJECTIVE: He is status post cystoscopy 3 days before. The patient was not in cardiopulmonary distress and he was on BiPAP that was switched to nasal canula. PHYSICAL EXAMINATION VITAL SIGNS: Blood pressure was 125/68, temperature 98.6, respiratory rate 18, pulse 80. HEENT: Pupils equal, reactive to light. Normal-appearing mucosa of the conjunctivae, oropharynx and nasal membrane mucosa. NECK: Supple. No JVD. No carotid bruit. No lymph nodes. No thyromegaly. CHEST AND LUNGS: Bilateral symmetrical expansion. Good air exchange. Few scattered rhonchi. CARDIOVASCULAR SYSTEM: PMI not localized. S1, S2. No additional sounds. ABDOMEN: Normoactive bowel sounds. No tenderness. No organomegaly. No masses. EXTREMITIES: No cyanosis, no clubbing, no edema. ACCOUNTING SYSTEM EXPERT: Alert, awake, oriented x2. Moves all extremities equally. ASSESSMENT: Pneumonia, exacerbation of chronic obstructive pulmonary disease, hematuria with urinary bladder tumor that was resected transurethrally. PLAN: Follow Urology recommendations regarding postoperative care. Continue current medications and follow up with Pulmonary regarding the oxygen supplement need. Caleb Kurtz MD
--- NOTE | 2017-10-14 12:07 | CP.PCM.PN ---
Subjective - Date & Time of Evaluation Date of Evaluation: 10/14/17 Time of Evaluation: 07:35 - Subjective Subjective: Patient seen and examined at bedside. No acute events overnight per nursing. Shortness of breath improved. No complaints today. Awaiting home oxygen. Clear for discharge from pulmonary standpoint. Assessment and Plan: 1. COPD - CTA 10/08: Severe centrilobular and panlobular emphysematous changes throughout the upper and lower lobes. - CBC 10/12: WBC 11.4, 87% neutros - solumedrol 40mg IV Q12h to prednisone - nebulizer treatments - spiriva - advair - azithromycin - home O2 2. Group 3 Pulmonary hypertension / to hypoxemia of COPD - Echo 10/06: Moderate to severe pulmonary hypertension, normal LV size, thickness, function and EF. - ABG 10/10: 7.40/50/60/28.3 - BiPAP Objective - Vital Signs/Intake and Output Vital Signs (last 24 hours): Temp Pulse Resp BP Pulse Ox 98.0 F 87 18 138/73 96 10/14/17 07:20 10/14/17 08:00 10/14/17 07:20 10/14/17 07:20 10/14/17 07:20 Intake and Output: 10/14/17 10/14/17 06:59 18:59 Intake Total 390 Output Total 750 Balance -360 - Medications Medications: Current Medications Albuterol/Ipratropium (Duoneb 3 Mg/0.5 Mg (3 Ml) Ud) 3 ml INH RQ4 [facility] Last Admin: 10/14/17 11:32 Dose: 3 ml Alprazolam (Xanax) 0.5 mg PO BID PRN PRN Reason: Anxiety Last Admin: 10/14/17 11:19 Dose: 0.5 mg Amlodipine Besylate (Norvasc) 5 mg PO DAILY [facility] Last Admin: 10/14/17 09:37 Dose: 5 mg Bisoprolol Fumarate/HCTZ (Ziac 5-6.25 Mg) 1 tab PO DAILY [facility] Last Admin: 10/14/17 09:37 Dose: 1 tab Losartan Potassium (Cozaar) 50 mg PO DAILY [facility] Last Admin: 10/14/17 09:37 Dose: 50 mg Methylprednisolone (Solu-Medrol) 40 mg IV Q12H [facility] Last Admin: 10/14/17 05:42 Dose: 40 mg Fluticasone/Salmeterol (Advair Diskus 250/50) 1 puff INH RQ12 [facility] Last Admin: 10/14/17 07:32 Dose: 1 puff Tamsulosin HCl (Flomax) 0.4 mg PO DAILY [facility] Last Admin: 10/14/17 09:37 Dose: 0.4 mg Tiotropium [place] (Spiriva) 18 mcg INH RQ24 [facility] Last Admin: 10/14/17 07:32 Dose: 18 mcg - Labs Labs: 10/14/17 06:28 10/14/17 06:28 PT 12.0 SECONDS (9.7-12.2) 10/12/17 06:56 INR 1.1 10/12/17 06:56 APTT 25 SECONDS (21-34) 10/12/17 06:56 Assessment and Plan (1) COPD (chronic obstructive pulmonary disease) with acute bronchitis Status: Acute
[2017-10-14 15:54] VITALS: BP 113/57; PULSE 88; RESP 20; TEMP 98; O2SAT 93
--- NOTE | 2017-10-14 16:19 | CP.PCM.PN ---
Subjective - Date & Time of Evaluation Date of Evaluation: 10/14/17 Time of Evaluation: 16:19 - Subjective Subjective: D/C TO [facility] UNDER SERVICE OF DR. SINGLETON. Objective - Vital Signs/Intake and Output Vital Signs (last 24 hours): Temp Pulse Resp BP Pulse Ox 98 F 88 20 113/57 L 93 L 10/14/17 15:53 10/14/17 15:53 10/14/17 15:53 10/14/17 15:53 10/14/17 15:53 Intake and Output: 10/14/17 10/14/17 06:59 18:59 Intake Total 390 500 Output Total 750 200 Balance -360 300 - Medications Medications: Current Medications Albuterol/Ipratropium (Duoneb 3 Mg/0.5 Mg (3 Ml) Ud) 3 ml INH RQ4 [facility] Last Admin: 10/14/17 15:30 Dose: 3 ml Alprazolam (Xanax) 0.5 mg PO BID PRN PRN Reason: Anxiety Last Admin: 10/14/17 11:19 Dose: 0.5 mg Amlodipine Besylate (Norvasc) 5 mg PO DAILY [facility] Last Admin: 10/14/17 09:37 Dose: 5 mg Bisoprolol Fumarate (Zebeta) 5 mg PO DAILY [facility] Losartan Potassium (Cozaar) 50 mg PO DAILY [facility] Last Admin: 10/14/17 09:37 Dose: 50 mg Methylprednisolone (Solu-Medrol) 40 mg IV Q12H [facility] Last Admin: 10/14/17 05:42 Dose: 40 mg Fluticasone/Salmeterol (Advair Diskus 250/50) 1 puff INH RQ12 [facility] Last Admin: 10/14/17 07:32 Dose: 1 puff Tamsulosin HCl (Flomax) 0.4 mg PO DAILY [facility] Last Admin: 10/14/17 09:37 Dose: 0.4 mg Tiotropium [place] (Spiriva) 18 mcg INH RQ24 [facility] Last Admin: 10/14/17 07:32 Dose: 18 mcg - Labs Labs: 10/14/17 06:28 10/14/17 06:28 PT 12.0 SECONDS (9.7-12.2) 10/12/17 06:56 INR 1.1 10/12/17 06:56 APTT 25 SECONDS (21-34) 10/12/17 06:56
--- NOTE | 2017-10-14 17:40 | PN ---
DATE: 10/14/2017 SUBJECTIVE: The patient is mildly short of breath. He denied any chest pain. He does not appear to be in any respiratory distress. PHYSICAL EXAMINATION: VITAL SIGNS: Blood pressure 138/73, heart rate 85, temperature 98, respirations 18. HEENT: Head normocephalic. CHEST: Bilateral expiratory rhonchi. HEART: S1, S2 regular. EXTREMITIES: No edema. LABORATORY DATA: Today's BUN and creatinine are around 54 and 1.6 respectively. Potassium is within normal limits. Glucose is 157. Today's hemoglobin and hematocrit are 16.4 and 46.9, white count 14.4, platelet count 160,000. ASSESSMENT: 1. Chest pain on admission, myocardial infarction is ruled out. 2. Bladder mass, status post transurethral biopsy. 3. Chronic obstructive lung disease. 4. Prerenal azotemia. RECOMMENDATIONS: Continue current Solu-Medrol 40 mg intravenously every 12 hours and continue Norvasc 10 mg once a day. Continue Cozaar 50 mg once a day. Discontinue Ziac and start Bisoprolol 5 mg orally once a day. Tarun Ruiz MD
--- NOTE | 2017-10-15 23:16 | DS ---
REASON FOR ADMISSION This is a 82 years old male with history of multiple medical problems was admitted for exacerbation of chronic obstructive pulmonary disease and pneumonia. COURSE OF HOSPITALIZATION: The patient was admitted to medical floor and he was started on IV antibiotics as well as IV steroids. The patient's hospitalization was complicated with hematuria. The patient had a cystoscopy and it showed that the patient has a transitional cell carcinoma of the urinary bladder. The tumor was resected transurethrally and the patient's postoperative course was uneventful. The patient was discharged to subacute rehabilitation at [facility] in a stable condition to continue current medications and taper steroids. FINAL DIAGNOSES: 1. Exacerbation of chronic obstructive pulmonary disease. 2. Pneumonia. 3. 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 [facility] MD Jerardo
--- NOTE | 2017-10-17 06:37 | PN ---
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 Dong. Zeb Dong MD
--- NOTE | 2017-10-19 03:25 | OP ---
PROCEDURE DATE: 10/12/2017 The patient is an 82-year-old with hematuria and ultrasounds of blabber tumor. PREOPERATIVE DIAGNOSES: Hematuria and bladder tumor. POSTOPERATIVE DIAGNOSIS: Bladder tumor sitting on the trigone, and the right side of the trigone. PROCEDURE: Transurethral resection of bladder tumor. DESCRIPTION OF PROCEDURE: While the patient in lithotomy position and after starting anesthesia, genitalia prepped and draped in sterile fashion. Cysto revealed urethra normal, prostrate more directly enlarged, but no obstruction. Multiple bladder tumors sitting on the trigone and on the right side of the trigone with large clots over it. Using a 70 degree lens to evaluate the dome lateral wall, there is no evidence of any other tumor. After filling the bladder, the scope removed. Urethra dilated. The rectoscope sheath inserted and TURBT done for the bladder tumor and all the margin fulgurated well. There was no evidence of any bleeding at the end of the procedure and area of the tumor which was resected, inspected, revealed no abnormality on the base. The patient tolerated the procedure well. After emptying the bladder, the scope removed and the patient transferred to the recovery room in stable condition. Zeb Dong MD MTDD
== END 2017-10-14 21:16 | DRG 987 ==
LOC: C.ER 10:37 → C.9E 13:04 → C.6T 13:24
PROVIDERS: ADMIT Internal Medicine; ATTEND Internal Medicine
PROC: 0T5B8ZZ Destruction of Bladder, Via Natural or Artificial Opening Endoscopic (ICD-10-PCS; 2017-10-12)
PROC: 0TBB8ZZ Excision of Bladder, Via Natural or Artificial Opening Endoscopic (ICD-10-PCS; principal; 2017-10-12 13:45)
DX: J44.0 Chronic obstructive pulmonary disease with (acute) lower respiratory infection (principal); J18.9 Pneumonia, unspecified organism; C67.0 Malignant neoplasm of trigone of bladder; J44.1 Chronic obstructive pulmonary disease with (acute) exacerbation; I25.10 Atherosclerotic heart disease of native coronary artery without angina pectoris; I10 Essential (primary) hypertension; I27.23 Pulmonary hypertension due to lung diseases and hypoxia; J20.9 Acute bronchitis, unspecified; K21.9 Gastro-esophageal reflux disease without esophagitis; R09.02 Hypoxemia; R31.0 Gross hematuria; Z90.49 Acquired absence of other specified parts of digestive tract; Z88.0 Allergy status to penicillin; Z87.891 Personal history of nicotine dependence

== ENCOUNTER 2017-11-14 20:30 | Inpatient (IN) | payer MEDICARE, OTHER ==
[2017-11-14] MEDS ORDERED: Albuterol-Ipratrop 3 mg / 0.5 (3 ml) UD INH STA (20:44)
[2017-11-14 21:10] LABS: BASO # 0.1 K/uL (0.0-0.2); BASO % 1.3 % (0.0-2.0); EOS % 0.3 % (0.0-4.0); LYMPH # 1.7 K/uL (1.0-4.3); MEAN CORPUSCULAR HEMOGLOBIN 33.8 pg (27.0-31.0); MEAN CORPUSCULAR HGB CONC 34.5 g/dL (33.0-37.0); MONO # 0.8 K/uL (0.0-0.8); MONO % 9.8 % (0.0-10.0); NEUT # 5.5 K/uL (1.8-7.0); NEUT % 67.6 % (50.0-75.0); RBC 4.14 Mil/uL (4.40-5.90); RED CELL DISTRIBUTION WIDTH 13.4 % (11.5-14.5); WHITE BLOOD COUNT 8.1 K/uL (4.8-10.8)
[2017-11-14 21:24] LABS: ALB/GLOB RATIO 0.8 (1.0-2.1); ALBUMIN 3.2 g/dL (3.5-5.0); ALT/SGPT 27 U/L (21-72); AST/SGOT 20 U/L (17-59); BLOOD UREA NITROGEN 15 mg/dL (9-20); CALCIUM 8.9 mg/dl (8.6-10.4); GFR AFRICAN-AMERICAN > 60; GFR NON-AFRICAN AMERICAN > 60
[2017-11-14 21:34] LABS: B-TYPE NATRIURETIC PEPTIDE 419 pg/mL (0-900)
[2017-11-14] MEDS ORDERED: Moxifloxacin IV 400mg/250ml NS 400 MG/250 ML BAG IVPB STA (22:00)
--- NOTE | 2017-11-14 22:25 | C.PDOC ---
Time Seen by Provider: 11/14/17 20:43 Chief Complaint (Nursing): Shortness Of Breath History Per: Patient Onset/Duration Of Symptoms: Days Current Symptoms Are (Timing): Worse Current Respiratory Medications: See Home Med List Severity: Moderate Associated Symptoms: Productive Cough Reports Recently: Hospitalized Additional History Per: Prior Records Past Medical History Reviewed: Historical Data, Nursing Documentation, Vital Signs Vital Signs: Last Vital Signs Temp 98.0 F 11/14/17 20:37 Pulse 83 11/14/17 21:46 Resp 18 11/14/17 21:46 BP 112/49 L 11/14/17 21:46 Pulse Ox 96 11/14/17 21:46 - Medical History PMH: Anxiety, Bronchitis, COPD, HTN Surgical History: Appendectomy - [facility] Procedures DESTRUCTION OF BLADDER, ENDO (10/06/17) EXCISION OF BLADDER, ENDO (10/06/17) NEBULIZER THERAPY (11/26/14) Family History: States: Unknown Family Hx - Social History Hx Tobacco Use: No (Quit 20 years ago) Hx Alcohol Use: Yes Hx Substance Use: No - Immunization History Hx Tetanus Toxoid Vaccination: No Hx Influenza Vaccination: No Hx Pneumococcal Vaccination: No Review Of Systems Except As Marked, All Systems Reviewed And Found Negative. Constitutional: Negative for: Fever, Weakness Respiratory: Positive for: Cough, Shortness of Breath, Sputum, Wheezing. Negative for: Hemoptysis Gastrointestinal: Negative for: Vomiting, Abdominal Pain Musculoskeletal: Negative for: Neck Pain Skin: Negative for: Rash Neurological: Negative for: Weakness, Numbness Physical Exam - Physical Exam Appears: In Acute Distress (mild), Chronically Ill Skin: Normal Color, Warm, Dry Head: Atraumatic, Normacephalic Eye(s): bilateral: PERRL, EOMI Neck: Normal ROM, Supple Cardiovascular: Rhythm Regular Respiratory: Wheezing Gastrointestinal/Abdominal: Soft, No Tenderness Extremity: Normal ROM, No Pedal Edema, No Calf Tenderness Neurological/Psych: Oriented x3, Normal Speech, Normal Motor ED Course And Treatment - Laboratory Results Result Diagrams: 11/14/17 21:06 11/14/17 21:06 Lab Interpretation: No Acute Changes ECG: Interpreted By Me, Viewed By Me ECG Rhythm: Sinus Rhythm, Nonspecific Changes ECG Interpretation: No Acute Changes Rate From EC O2 Sat by Pulse Oximetry: 96 Pulse Ox Interpretation: Normal - Radiology CXR: Interpreted by Me, Viewed By Me CXR Interpretation: Yes: Infiltrates, COPD Progress - Interventions Interventions:: Observation, Oxygen - Medications Administered Inhaled nebulized: Anticholinergic, Beta-2 agonist Intravenous: Corticosteroid - Data Reviewed Data Reviewed: Lab, Diagnostic imaging, EKG, Old records - Patient Status Patient status: Partially improved - Critical Care Citical Care: Excluding Proc Time Critical Care Time: 45 minutes - Continuity of Care Discussed patient case with:: Patient, ED Nurse, PMD - Patient Plan Patient Plan: Admission Disposition Discussed With DrRena: Caleb Kurtz Comment: He accepted pt on his service. Doctor Will See Patient In The: Hospital Counseled Patient/Family Regarding: Studies Performed, Diagnosis - Disposition Disposition: HOSPITALIZED Disposition Time: 22:29 Condition: FAIR - Clinical Impression Clinical Impression: COPD exacerbation, Pneumonia
[2017-11-14] MEDS: Albuterol-Ipratrop 3 mg / 0.5 (3 ml) UD IH SCH (23:37)
[2017-11-15] MEDS: MethylPREDNISolone 40 mg Vial IVP SCH ×4 (00:42→23:45)
[2017-11-15] MEDS: Albuterol-Ipratrop 3 mg / 0.5 (3 ml) UD INH SCH ×4 (02:11→19:38)
[2017-11-15] MEDS: Acetylcysteine 20% Inhal Soln (4ml) INH SCH ×4 (02:11→19:38)
[2017-11-15] MEDS: Fluticasone-Salmeterol 250-50mcg Diskus INH SCH ×2 (07:27→19:37)
[2017-11-15] MEDS: Tiotropium 18 mcg Cap For Inhalation INH SCH (07:27)
--- NOTE | 2017-11-15 09:21 | RAD ---
Chest x-ray single frontal view History: Shortness of breath. Comparison: 10/06/2017 Findings Biapical pleural thickening with upper lobe granulomatous changes. Hyperinflation suggestive for COPD and or emphysematous changes. Prominent consolidative changes at both lung bases ; left greater than right. Diffuse increased interstitial lung markings. Tortuous aorta with calcification at the aortic knob. Degenerative changes in the spine and shoulders. Impression: Biapical pleural thickening with upper lobe granulomatous changes. Hyperinflation suggestive for COPD and or emphysematous changes. Prominent consolidative changes at both lung bases ; left greater than right. Diffuse increased interstitial lung markings. Tortuous aorta with calcification at the aortic knob.
[2017-11-15] MEDS: Bisoprolol-HCTZ 5-6.25 mg Tab PO SCH (09:44)
[2017-11-15] MEDS: Enoxaparin 30 mg Syringe SC SCH (09:44)
[2017-11-15] MEDS: Azithromycin 500 MG in Sodium Chloride 0.9% 250 ML IVPB SCH (09:53)
--- NOTE | 2017-11-15 12:34 | CARD ---
APPROVED REPORT EKG Measurement Heart [id number] CA [id number] <Conclusion> Sinus rhythm with short CA Otherwise normal ECG
[2017-11-16] MEDS: Acetylcysteine 20% Inhal Soln (4ml) INH SCH ×4 (01:35→19:34)
[2017-11-16] MEDS: Albuterol-Ipratrop 3 mg / 0.5 (3 ml) UD INH SCH ×4 (01:36→19:35)
[2017-11-16] MEDS: Fluticasone-Salmeterol 250-50mcg Diskus INH SCH ×2 (07:13→19:35)
[2017-11-16] MEDS: Tiotropium 18 mcg Cap For Inhalation INH SCH (07:14)
--- NOTE | 2017-11-16 07:17 | HP ---
HISTORY OF PRESENT ILLNESS: This is an 82-year-old male with history of multiple medical problems including COPD and smoker, recently diagnosed with transitional cell carcinoma, status post cystoscopic excision. The patient was in subacute rehabilitation at [place] when he started to develop shortness of breath, wheezing and respiratory distress. The patient was brought to emergency room for evaluation and due to the lack of response to the conventional treatment of exacerbation of COPD, the patient was admitted for further management. REVIEW OF SYSTEMS: Other review of system is positive for cough with expectoration of yellow sputum. Other review of systems negative. ALLERGIES: POSITIVE FOR PENICILLIN. PAST MEDICAL HISTORY: As above. SOCIAL HISTORY: Ex-smoker: No EtOH or substance abuse. FAMILY HISTORY: Noncontributory. MEDICATIONS: As per MAR. PHYSICAL EXAMINATION: GENERAL: The patient is in bed, in mild respiratory distress with a respiratory rate of 24. VITAL SIGNS: Blood pressure 117/60, temperature 98.2, respiratory rate 24, pulse 76. HEENT: Pupils equal and reactive to light. Normal-appearing mucosa of the conjunctivae, oropharynx and nasal membrane mucosa. NECK: Supple. No JVD. No carotid bruit. No lymph node. No thyromegaly. CHEST AND LUNGS: Bilateral symmetrical expansion. Good air exchange. No rales. Scattered rhonchi all over lung baker. CARDIOVASCULAR SYSTEM: PMI not localized. S1, S2. No additional sounds. ABDOMEN: Normoactive bowel sounds. No tenderness. No organomegaly. No masses. EXTREMITIES: No cyanosis, no clubbing, no edema. DUPLICATING MACHINE OPERATOR: Alert, awake, oriented x2. No neurological deficit could be appreciated. ASSESSMENT: Exacerbation of chronic obstructive pulmonary disease, bilateral pneumonia, history of transitional cell carcinoma, status post cystoscopic excision. PLAN: We will give the patient bronchodilators, Solu-Medrol, Mucomyst. Physical therapy. Also, we ordered psych consult, as per caregiver the patient is hearing voices. Caleb Kurtz MD
[2017-11-16] MEDS: MethylPREDNISolone 40 mg Vial IVP SCH ×3 (07:39→23:54)
[2017-11-16] MEDS: Bisoprolol-HCTZ 5-6.25 mg Tab PO SCH (10:06)
[2017-11-16] MEDS: Enoxaparin 30 mg Syringe SC SCH (10:07)
[2017-11-16] MEDS: Azithromycin 500 MG in Sodium Chloride 0.9% 250 ML IVPB SCH (10:07)
--- NOTE | 2017-11-16 13:32 | PCM.PSYCH ---
Initial Psychiatric Evaluation - Initial Psychiatric Evaluation Type of Admission: Voluntary Legal Status: Capacity Chief Complaint (in patient's own words): "I am doing fine" History of Present Illness and Precipitating Events: Patient is a 82 year old male with history of multiple medical problems including COPD and smoker, recently diagnosed with transitional cell carcinoma, status post cystoscopic excision. The patient was in subacute rehab at [place] when he started to develop severe shortness of breath, wheezing, and respiratory distress. That patient was brought to the ER for evaluation and due to the lack of response to conventional treatment and exacerbation of COPD. Patient was seen by psychiatry today. Patient was able to answer all questions when prompted but the patient continued to have loose associations after answering. Patient would start repeating stores about his past and was irritable at times. Patient seemed confused at times when answer questions about his history. Patient denies depression and suicidal ideation. Patient denies auditory, tactile, and visual hallucinations. Patient denies alcohol use or illicit drug use. Patient reports he has smoking for over 50 years. Patient overall seemed to be a poor historian. He appears somewhat disorganized and internally preoccupied throughout the interview. Nurse in the room states the patient would talk to himself and get irritable at the same time. The nurse would talk to the patient for a little bit and the patient would calm down. Medical Hx: COPD, transitional cell carcinoma Surgical Hx: unknown Psych Hx: denies Fam Hx: denies family psychiatric history Allergies: PCN Current Medications: Active Medications Generic Name Dose Route Start Last Admin Trade Name Freq PRN Reason Stop Dose Admin Acetylcysteine 4 ml 11/15/17 02:00 11/16/17 13:25 Acetylcysteine 20% INH 4 ml Q6H [facility] Administration Albuterol/Ipratropium 3 ml 11/15/17 02:00 11/16/17 13:23 Duoneb 3 Mg/0.5 Mg (3 Ml) Ud INH 3 ml RQ6 [facility] Administration Alprazolam 0.5 mg 11/15/17 04:44 11/15/17 20:57 Xanax PO 0.5 mg BID PRN Administration Anxiety Amlodipine Besylate 5 mg 11/15/17 10:00 11/16/17 10:06 Norvasc PO 5 mg DAILY [facility] Administration Bisoprolol Fumarate/HCTZ 1 tab 11/15/17 10:00 11/16/17 10:06 Ziac 5-6.25 Mg PO 1 tab DAILY [facility] Administration Enoxaparin Sodium 30 mg 11/15/17 10:00 11/16/17 10:07 Lovenox SC 30 mg DAILY [facility] Administration Azithromycin 500 mg/ Sodium 250 mls @ 250 mls/hr 11/15/17 10:00 11/16/17 10: 07 Chloride IVPB 250 mls/hr DAILY [facility] Administration Protocol Losartan Potassium 50 mg 11/15/17 10:00 11/16/17 10:06 Cozaar PO 50 mg DAILY [facility] Administration Methylprednisolone 40 mg 11/15/17 00:10 11/16/17 07:39 Solu-Medrol IVP 40 mg Q8H [facility] Administration Montelukast Sodium 10 mg 11/15/17 22:00 11/15/17 21:00 Singulair PO 10 mg HS [facility] Administration Pneumococcal Polyvalent Vaccine 0.5 ml 11/17/17 10:00 Pneumovax 23 Vaccine IM 11/17/17 10:01 .ONCE ONE Fluticasone/Salmeterol 1 puff 11/15/17 08:00 11/15/17 19:37 Advair Diskus 250/50 INH Not Given RQ12 [facility] Tamsulosin HCl 0.4 mg 11/15/17 10:00 11/16/17 10:06 Flomax PO 0.4 mg DAILY [facility] Administration Tiotropium [place] 18 mcg 11/15/17 08:00 11/15/17 07:27 Spiriva INH Not Given RQ24 [facility] Past Psychiatric History - Past Psychiatric History Previous Treatment History: None Pertinent Medical Hx (Current Medical&Sleep Prob, Allergies): Allergies Allergy/AdvReac Type Severity Reaction Status Date / Time Penicillins Allergy Verified 10/06/17 10:53 Bisoprolol/HCTZ [Ziac 5-6.25 mg] 1 tab PO DAILY 10/06/17 Losartan Potassium 50 mg PO DAILY 10/06/17 Montelukast Sodium [Singulair] 10 mg PO HS 10/06/17 amLODIPine [Norvasc] 5 mg PO DAILY 10/06/17 Fluticasone/Vilanterol [Breo Ellipta 200-25 Mcg INH] 1 each IH DAILY 10/07/17 Albuterol/Ipratropium [Duoneb 3 mg/0.5 mg (3 ml) UD] 3 ml INH RQ4 neb 10/14/17 Fluticasone/Salmeterol 250/50 [Advair Diskus 250/50] 1 puff INH RQ12 puff 10/14 Tamsulosin [Flomax] 0.4 mg PO DAILY cap 10/14/17 Tiotropium [Spiriva] 18 mcg INH RQ24 cap 10/14/17 predniSONE [predniSONE Tab] See Taper PO DAILY 8 Days tab 10/14/17 Review of Systems - Review of Systems All systems: reviewed and no additional remarkable complaints except - Neurological Neurological: UNREMARKABLE - Psychiatric Psychiatric: Confusion, Difficulty Concentrating. absent: Anhedonia, Anxiety, Auditory Hallucinations, Depression, Hallucinations, Hopelessness, Paranoia, Suicidal Ideation, Visual Hallucinations, Tactile Hallucinations Mental Status Examination - Personal Presentation Personal Presentation: Looks stated age - Affect Affect: Constricted - Motor Activity Motor Activity: Calm - Reliability in Providing Information Reliability in Providing Information: Poor, due to alteration in thoughts - Speech Speech: Disorganized - Mood Mood: Neutral - Formal Thought Process Formal Thought Process: Loosening of associations - Obsessions/Compulsions Obsessions: No Compulsions: No - Cognitive Functions Orientation: Person, Place Sensorium: Alert Attention/Concentration: Easily distracted Estimate of Intelligence: Below average Judgement: Imparied, as evidence by: Poor judgement, Imparied, as evidence by: Lack of insight into illness - Risk Risk: Diminished functioning - Limitations Limitations: Living alone DSM 5 DX - DSM 5 DSM 5 Diagnosis: Delirium due to medical condition Rule out Alzheimer's disease with behavioral symptoms - Recommended/Plan of Treatment Treatment Recommendations and Plan of Treatment: Delirium due to medical condition Rule out Alzheimer's disease with behavioral symptoms Psychoeducation Supportive therapy Haldol 0.5 mg by mouth every 6 hours when necessary
[2017-11-16] MEDS: Aztreonam 1 GM in Sodium Chloride 0.9% 100 ML IVPB SCH (18:00)
[2017-11-16] MEDS: Vancomycin 750mg/NS 150 ml 150 ML IVPB SCH (19:00)
--- NOTE | 2017-11-16 22:42 | PN ---
DATE: SUBJECTIVE: He is still getting mild shortness of breath on exertion. OBJECTIVE: VITAL SIGNS: Blood pressure is 107/46, temperature 98.2, respiratory rate 20, and pulse 88. HEENT: Pupils equal, reactive to light. Normal-appearing mucosa of the conjunctivae, oropharynx, and nasal membrane mucosa. Neck: Supple. No JVD. No carotid bruit. No lymph node. No thyromegaly. CHEST: Lungs, Bilateral symmetrical expansion. Good air exchange. No rales, no rhonchi. There are scattered rhonchi all over lung baker. CARDIOVASCULAR: PMI not localized. S1 and S2. No additional sounds. ABDOMEN: Normoactive bowel sounds. No tenderness. No organomegaly. No masses. EXTREMITIES: No cyanosis, no clubbing, no edema. DOPE WORKER: Alert, awake, oriented x2. No neurological deficit could be appreciated. ASSESSMENT: 1. Bilateral pneumonia. 2. Exacerbation of chronic obstructive pulmonary disease. 3. Anxiety. PLAN: We will continue current IV steroids, and we will add Azactam and vancomycin to cover for healthcare-related pneumonia. Caleb Kurtz MD
[2017-11-17] MEDS: Aztreonam 1 GM in Sodium Chloride 0.9% 100 ML IVPB SCH ×3 (01:07→17:50)
[2017-11-17] MEDS: Albuterol-Ipratrop 3 mg / 0.5 (3 ml) UD INH SCH ×4 (01:36→19:56)
[2017-11-17] MEDS: Acetylcysteine 20% Inhal Soln (4ml) INH SCH ×4 (01:36→19:56)
[2017-11-17] MEDS: Vancomycin 750mg/NS 150 ml 150 ML IVPB SCH ×2 (05:09→19:00)
[2017-11-17] MEDS: MethylPREDNISolone 40 mg Vial IVP SCH ×3 (08:27→23:00)
[2017-11-17] MEDS ORDERED: Pneumococcal 23-Valent Vaccine IM ONE (10:00)
[2017-11-17] MEDS: Azithromycin 500 MG in Sodium Chloride 0.9% 250 ML IVPB SCH (11:00)
[2017-11-17] MEDS: Enoxaparin 30 mg Syringe SC SCH (11:00)
[2017-11-17] MEDS: Bisoprolol-HCTZ 5-6.25 mg Tab PO SCH (11:00)
[2017-11-17] MEDS ORDERED: MethylPREDNISolone 40 mg Vial IVP STA (13:41)
[2017-11-17] MEDS: Fluticasone-Salmeterol 250-50mcg Diskus INH SCH (19:55)
[2017-11-18] MEDS: Albuterol-Ipratrop 3 mg / 0.5 (3 ml) UD INH SCH ×3 (00:59→13:20)
[2017-11-18] MEDS: Acetylcysteine 20% Inhal Soln (4ml) INH SCH ×3 (00:59→13:20)
[2017-11-18] MEDS: Aztreonam 1 GM in Sodium Chloride 0.9% 100 ML IVPB SCH ×3 (01:22→17:48)
--- NOTE | 2017-11-18 03:29 | PN ---
DATE: 11/17/2017 DAILY PROGRESS NOTE SUBJECTIVE: The patient is seen today, 11/17/2017. He is having exertional shortness of breath, and wheezing is remarkably less. PHYSICAL EXAMINATION: VITAL SIGNS: Blood pressure 126/64, temperature 97.2, respiratory rate 20 and pulse 18. HEENT: Pupils equal, reactive to light. Normal-appearing mucosa of the conjunctivae, oropharynx and nasal membrane mucosa. NECK: Supple. No JVD. No carotid bruit. No lymph node. No thyromegaly. CHEST AND LUNGS: Bilateral symmetrical expansion. Good air exchange. Positive rhonchi bilaterally. No rales. CARDIOVASCULAR SYSTEM: PMI not localized. S1, S2. No additional sounds. ABDOMEN: Normoactive bowel sounds. No tenderness. No organomegaly. No masses. EXTREMITIES: No cyanosis, no clubbing, no edema. MAILING SPECIALIST: Alert, awake, oriented x2. No neurological deficit could be appreciated. ASSESSMENT: 1. Exacerbation of chronic obstructive pulmonary disease. 2. Bilateral pneumonia. 3. Smoker. PLAN: 1. Continue current IV antibiotics, both vancomycin, Azactam, and azithromycin, treating healthcare-related pneumonia. 2. Continue bronchodilators and we will taper steroids. 3. Physical therapy. Caleb Kurtz MD
[2017-11-18] MEDS: Vancomycin 750mg/NS 150 ml 150 ML IVPB SCH ×2 (05:15→18:13)
[2017-11-18] MEDS: MethylPREDNISolone 40 mg Vial IVP SCH ×3 (05:16→22:12)
[2017-11-18 06:46] LABS: BASO % 0.4 % (0.0-2.0); HEMOGLOBIN 13.3 g/dL (12.0-18.0); LYMPH # 0.9 K/uL (1.0-4.3); LYMPH % 8.7 % (20.0-40.0); MEAN CELL VOLUME 97.6 fL (80.0-94.0); MEAN CORPUSCULAR HEMOGLOBIN 33.1 pg (27.0-31.0); MEAN CORPUSCULAR HGB CONC 33.9 g/dL (33.0-37.0); MEAN PLATELET VOLUME 7.2 fL (7.2-11.7); MONO # 0.4 K/uL (0.0-0.8); NEUT % 86.9 % (50.0-75.0); PLATELET COUNT 192 K/uL (130-400); RBC 4.01 Mil/uL (4.40-5.90); RED CELL DISTRIBUTION WIDTH 13.3 % (11.5-14.5); WHITE BLOOD COUNT 10.4 K/uL (4.8-10.8)
[2017-11-18] MEDS: Fluticasone-Salmeterol 250-50mcg Diskus INH SCH (07:39)
[2017-11-18 07:49] LABS: BLOOD UREA NITROGEN 18 mg/dL (9-20); CALCIUM 8.5 mg/dl (8.6-10.4); GFR AFRICAN-AMERICAN > 60; GFR NON-AFRICAN AMERICAN > 60
[2017-11-18 08:30] LABS: LYMPHOCYTE 8 % (20-40); MONOCYTE 3 % (0-10); NEUTROPHIL 89 % (50-75); PLATELET ESTIMATE NORMAL (NORMAL); TOTAL CELLS COUNTED 100
[2017-11-18] MEDS: Azithromycin 500 MG in Sodium Chloride 0.9% 250 ML IVPB SCH (09:58)
[2017-11-18] MEDS: Enoxaparin 30 mg Syringe SC SCH (09:59)
[2017-11-18] MEDS: Bisoprolol-HCTZ 5-6.25 mg Tab PO SCH (10:10)
--- NOTE | 2017-11-19 00:24 | PN ---
DATE: 11/18/2017 SUBJECTIVE: The patient is seen today 11/18/2017. He is still has exertional shortness of breath and some wheezing. PHYSICAL EXAMINATION: VITAL SIGNS: Blood pressure 156/71, temperature 98.3, respiratory rate 20 and pulse 71. HEENT: Pupils equal, reactive to light. Normal-appearing mucosa of the conjunctivae, oropharynx and nasal membrane mucosa. NECK: Supple. No JVD. No carotid bruit. No lymph node. No thyromegaly. CHEST AND LUNGS: Bilateral symmetrical expansion. Good air exchange. No rales. Few scattered rhonchi. CARDIOVASCULAR SYSTEM: PMI not localized, S1 and S2. No additional sounds. ABDOMEN: Normoactive bowel sounds. No tenderness. No organomegaly. No masses. EXTREMITIES: No cyanosis, no clubbing, no edema. MANAGER PROGRAMS: Alert, awake, oriented x1. Positive sensorineural deafness. No neurological deficit. ASSESSMENT: Exacerbation of chronic obstructive pulmonary disease, bilateral pneumonia and sensorineural deafness. PLAN: Continue current IV antibiotics and medications and physical therapy and plan for discharge to subacute rehab. Caleb Kurtz MD
[2017-11-19] MEDS: Aztreonam 1 GM in Sodium Chloride 0.9% 100 ML IVPB SCH ×3 (01:11→17:44)
[2017-11-19] MEDS: Acetylcysteine 20% Inhal Soln (4ml) INH SCH ×4 (02:58→19:19)
[2017-11-19] MEDS: Albuterol-Ipratrop 3 mg / 0.5 (3 ml) UD INH SCH ×4 (02:59→19:19)
[2017-11-19] MEDS: MethylPREDNISolone 40 mg Vial IVP SCH ×3 (05:35→21:40)
[2017-11-19] MEDS: Vancomycin 750mg/NS 150 ml 150 ML IVPB SCH (05:38)
[2017-11-19] MEDS: Fluticasone-Salmeterol 250-50mcg Diskus INH SCH ×2 (07:20→19:20)
[2017-11-19] MEDS: Tiotropium 18 mcg Cap For Inhalation INH SCH (07:20)
[2017-11-19] MEDS: Enoxaparin 30 mg Syringe SC SCH (10:05)
[2017-11-19] MEDS: Bisoprolol-HCTZ 5-6.25 mg Tab PO SCH (10:05)
[2017-11-19 22:19] LABS: CK-MB 1.15 ng/mL (0.0-3.38)
[2017-11-20] MEDS: Albuterol-Ipratrop 3 mg / 0.5 (3 ml) UD INH SCH ×2 (01:51→19:49)
[2017-11-20] MEDS: Acetylcysteine 20% Inhal Soln (4ml) INH SCH ×4 (01:51→19:50)
--- NOTE | 2017-11-20 02:05 | PN ---
DATE: 11/19/2017 DAILY PROGRESS NOTE SUBJECTIVE: The patient is seen today, 11/19/2017. He was complaining of chest pain. EKG was done that did not show any acute ischemic changes. Cardiac enzymes were ordered. PHYSICAL EXAMINATION: VITAL SIGNS: Blood pressure 167/82, temperature 98.7, respiratory rate 20, and pulse 71. HEENT: Pupils equal and reactive to light. Normal-appearing mucosa of the conjunctivae, oropharynx and nasal membrane mucosa. NECK: Supple. No JVD. No carotid bruit. No lymph node. No thyromegaly. CHEST AND LUNGS: Bilateral symmetrical expansion. Good air exchange. No rales. No rhonchi. CARDIOVASCULAR SYSTEM: PMI not localized. S1 and S2. No additional sounds. ABDOMEN: Normoactive bowel sounds. No tenderness. No organomegaly. No masses. EXTREMITIES: No cyanosis, no clubbing, no edema. 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 No neurological deficit could be appreciated. ASSESSMENT: Exacerbation of chronic obstructive pulmonary disease, bilateral pneumonia, chest pain, rule out myocardial infarction. PLAN: Continue current antibiotics and decrease vancomycin to 500 mg every 12 hours due to the increase of the trough and do cardiac enzymes. Caleb Kurtz MD
[2017-11-20] MEDS: Aztreonam 1 GM in Sodium Chloride 0.9% 100 ML IVPB SCH ×3 (02:15→18:20)
[2017-11-20] MEDS: MethylPREDNISolone 40 mg Vial IVP SCH ×3 (05:29→21:27)
[2017-11-20] MEDS: Fluticasone-Salmeterol 250-50mcg Diskus INH SCH ×2 (07:26→19:51)
[2017-11-20] MEDS: Tiotropium 18 mcg Cap For Inhalation INH SCH (07:27)
[2017-11-20 07:50] VITALS: RESP 20
[2017-11-20] MEDS: Bisoprolol-HCTZ 5-6.25 mg Tab PO SCH (09:45)
[2017-11-20] MEDS: Enoxaparin 30 mg Syringe SC SCH (09:46)
[2017-11-21] MEDS: Aztreonam 1 GM in Sodium Chloride 0.9% 100 ML IVPB SCH ×3 (01:56→18:05)
[2017-11-21] MEDS: Acetylcysteine 20% Inhal Soln (4ml) INH SCH ×4 (02:54→19:20)
[2017-11-21] MEDS: Albuterol-Ipratrop 3 mg / 0.5 (3 ml) UD INH SCH ×4 (02:54→19:20)
[2017-11-21] MEDS: MethylPREDNISolone 40 mg Vial IVP SCH ×3 (05:15→21:46)
[2017-11-21] MEDS: Fluticasone-Salmeterol 250-50mcg Diskus INH SCH ×2 (07:40→19:24)
[2017-11-21] MEDS: Tiotropium 18 mcg Cap For Inhalation INH SCH (07:40)
[2017-11-21] MEDS: Enoxaparin 30 mg Syringe SC SCH (09:07)
[2017-11-21] MEDS: Bisoprolol-HCTZ 5-6.25 mg Tab PO SCH (09:08)
--- NOTE | 2017-11-21 23:53 | PN ---
DATE: 11/21/2017 SUBJECTIVE: The patient is seen today 11/21/2017. He is having less shortness of breath and cough. PHYSICAL EXAMINATION: VITAL SIGNS: Blood pressure is 152/81, temperature 98.1, respiratory rate 20 and pulse 73. HEENT: Pupils equal, reactive to light. Normal-appearing mucosa of the conjunctivae, oropharynx and nasal membrane mucosa. NECK: Supple. No JVD. No carotid bruit. No lymph node. No thyromegaly. CHEST AND LUNGS: Bilateral symmetrical expansion. Good air exchange. No rales. There are few scattered rhonchi on both lung baker. CARDIOVASCULAR SYSTEM: PMI not localized, S1 and S2. No additional sounds. ABDOMEN: Normoactive bowel sounds. No tenderness. No organomegaly. No masses. EXTREMITIES: No cyanosis, no clubbing, no edema. PARKING MANAGER: Alert, awake, oriented x2. Moves all extremities equally. The patient has deafness bilaterally. ASSESSMENT: Exacerbation of chronic obstructive pulmonary disease, bilateral pneumonia, bilateral sensorineural deafness. PLAN: Continue current antibiotics and bronchodilators. We will taper steroids. Case management for discharge planning. Caleb Kurtz MD
[2017-11-22] MEDS: Acetylcysteine 20% Inhal Soln (4ml) INH SCH ×4 (01:03→20:14)
[2017-11-22] MEDS: Albuterol-Ipratrop 3 mg / 0.5 (3 ml) UD INH SCH ×4 (01:03→20:14)
[2017-11-22] MEDS: MethylPREDNISolone 40 mg Vial IVP SCH ×2 (05:35→14:40)
[2017-11-22] MEDS: Tiotropium 18 mcg Cap For Inhalation INH SCH (08:30)
[2017-11-22] MEDS: Fluticasone-Salmeterol 250-50mcg Diskus INH SCH ×2 (08:30→20:14)
[2017-11-22 08:52] VITALS: O2SAT 96
[2017-11-22] MEDS: Enoxaparin 30 mg Syringe SC SCH (10:15)
[2017-11-22] MEDS: Bisoprolol-HCTZ 5-6.25 mg Tab PO SCH (10:15)
[2017-11-22 16:11] VITALS: BP 158/72; PULSE 90; TEMP 98.1
--- NOTE | 2017-11-23 22:38 | CARD ---
APPROVED REPORT EKG Measurement Heart [id number] <Conclusion> Sinus rhythm with occasional premature ventricular complexes Possible Left atrial enlargement Septal infarct, age undetermined Abnormal ECG
== END 2017-11-22 21:05 | DRG 190 ==
LOC: C.ER 20:30 → C.9E 22:30 → C.3T 22:57
PROVIDERS: ADMIT Internal Medicine; ATTEND Internal Medicine
DX: J44.0 Chronic obstructive pulmonary disease with (acute) lower respiratory infection (principal); J18.9 Pneumonia, unspecified organism; F05 Delirium due to known physiological condition; J44.1 Chronic obstructive pulmonary disease with (acute) exacerbation; I10 Essential (primary) hypertension; F41.9 Anxiety disorder, unspecified; F17.200 Nicotine dependence, unspecified, uncomplicated; H90.5 Unspecified sensorineural hearing loss; Z85.50 Personal history of malignant neoplasm of unspecified urinary tract organ; Z88.0 Allergy status to penicillin